=== PATIENT | female | born 1945 | race Caucasian/White ===

== ENCOUNTER 2020-03-17 07:00 | Inpatient (IN) | payer MEDICARE, SELFPAY ==
[2020-03-17] VITALS (7 sets, daily range): BP systolic 105–179; BP diastolic 58–88; PULSE 85–98; RESP 15–20; TEMP 35.9–37; O2SAT 95–99; BMI 32.8
--- NOTE | ~2020-03-17 | XR_ITS ---
EXAMINATION: XR abdomen obstructive series EXAM DATE: 03/20/2020 05:32 INDICATION: Partial small bowel obstruction. TECHNIQUE: Frontal upright projection of the upper abdomen, frontal projection of the lower abdomen f or interpretation. Comparison is made to prior examination from 03/19/2020. FINDINGS: : Multiple loops of moderately distended air-filled small bowel, amount of distention appe ars unchanged compared to yesterday. Small bowel obstruction. Small to moderate amount of colonic gas . There is no organomegaly. Lower lumbar predominant spondylosis. IMPRESSION: 1. Small bowel obstruction, unchanged. Reviewed, dictated and finalized at location A.
--- NOTE | ~2020-03-17 | XR_ITS ---
EXAMINATION: XR abdomen obstructive series EXAM DATE: 03/19/2020 05:45 INDICATION: Small bowel obstruction. TECHNIQUE: Frontal projection(s) of the abdomen for interpretation. Comparison is made to prior exami nation from 03/18/2020, 03/17. FINDINGS: Multiple loops of moderately distended air-filled small bowel, amount of distention appear s slightly improved compared to yesterday. Small bowel obstruction. Small to moderate amount of colon ic gas. There is no organomegaly. Lower lumbar predominant spondylosis. IMPRESSION: 1. Small bowel obstruction, mild improvement in degree of distention. Reviewed, dictated and finalized at location A.
--- NOTE | ~2020-03-17 | XR_ITS ---
EXAMINATION: XR abdomen obstructive series EXAM DATE: 03/18/2020 06:30 INDICATION: Follow-up partial small bowel obstruction. TECHNIQUE: Frontal upright projection of the upper abdomen, frontal projection of the lower abdomen f or interpretation. Comparison is made to prior examination from 03/17/2020. FINDINGS: Feeding tube overlies expected position. There are several loops of moderately distended a ir-filled small and small bowel, consistent with small bowel obstruction. No evidence of free intrape ritoneal gas. There is no organomegaly. Moderate disc disease lower lumbar spine. IMPRESSION: Persistent small bowel obstruction. Reviewed, dictated and finalized at location A.
--- NOTE | ~2020-03-17 | CT_ITS ---
EXAMINATION: CT abdomen pelvis w con DATE: 03/17/2020 07:55 INDICATION: Generalized abdominal pain. TECHNIQUE: Computed tomography (CT) of the abdomen and pelvis was performed with 100 mL Omnipaque 350 intravenous contrast. Automated exposure control and iterative reconstruction technique were employe d. The dose-length product was 608.71 mGy-cm. COMPARISON: CT abdomen and pelvis 01/01/2015 FINDINGS: The visualized portions of the lung bases demonstrate mild atelectasis. No pleural effusion . The heart size is normal. No pericardial effusion. There are coronary artery calcifications. The li gamaliel and spleen are normal. There are changes of cholecystectomy. Pancreas divisum is noted. The adren al glands are normal. There is cortical thinning of the kidneys. There are scattered diverticula in t he colon. There is wall thickening of the sigmoid colon. The appendix is not visualized. There are mu ltiple dilated loops of small bowel with transition point in right lower quadrant. There is a small v olume of ascites. There are no pathologically enlarged lymph nodes. There is severe lumbar spondylosi s. IMPRESSION: 1. Small bowel obstruction with transition point in the ileum in right lower quadrant. 2. Wall thickening of the sigmoid colon, likely chronic diverticulitis. 3. Small volume of pelvic ascites. Reviewed, dictated and finalized at location B. IMPRESSION: 1. Small bowel obstruction with transition point in the ileum in right lower qu adrant. 2. Wall thickening of the sigmoid colon, likely chronic diverticulitis. 3. Small volume of pelvic ascites.
--- NOTE | ~2020-03-17 | XR_ITS ---
EXAMINATION: XR abdomen NG/feed tube insert DATE: 03/17/2020 08:45 INDICATION: Nasogastric tube placement. TECHNIQUE: An upright view of the abdomen was obtained. COMPARISON: CT abdomen and pelvis 03/17/2020 FINDINGS: The lower abdomen is excluded. There are dilated loops of small bowel. The colon is decompr essed. The nasogastric tube tip is in the stomach. IMPRESSION: 1. Nasogastric tube tip in the stomach. 2. Small bowel obstruction. Reviewed, dictated and finalized at location B.
--- NOTE | ~2020-03-17 | XR_ITS ---
XR abdomen obstructive series 03/21/2020 08:42 Indication: Small bowel obstruction Procedure: Supine and upright views of the abdomen Comparison: Comparison to multiple prior studies sequentially, with oldest reviewed study dated 03/17. Findings: Dilated small bowel loops with air-fluid levels on upright view, compatible with persistent small bowel obstruction. There is small amount of gas in the colon and rectum. No free air is identi fied. Lung bases unremarkable. Impression: 1: Persistent small bowel obstruction. Reviewed, dictated and finalized at location A. Impression: 1: Persistent small bowel obstruction.
--- NOTE | 2020-03-17 07:11 | ED.ABDPAIN ---
HPI - Abdominal Pain General Chief Complaint: Abdominal Pain Stated Complaint: abd pain; n/v Time Seen by Provider: 03/17/20 07:10 Source: patient and family Mode of arrival: ambulatory Limitations: no limitations History of Present Illness HPI narrative: 74 years old white female complaining of nausea and frequent vomiting since last night with diffuse lower abdominal discomfort. Patient denies any fever, chills, coughing, shortness of breath, back pain or exposure to anybody was COVID-19. Related Data Home Medications Medication Instructions Recorded Confirmed albuterol sulfate 2.5 mg INHALATION Q4-6H PRN 09/05/19 01/03/20 albuterol sulfate 90 mcg/actuation 2 inhalation INHALATION Q4H gm 09/05/19 01/03/20 aerosol inhaler aspirin 81 mg tablet,delayed 81 mg PO DAILY 09/05/19 01/03/20 release glucosamine sulfate 500 mg tablet 500 mg PO BID 09/05/19 01/03/20 magnesium 250 mg tablet 250 mg PO DAILY 09/05/19 01/03/20 vitamin B complex with vit C-folic 1 tablet PO DAILY 09/05/19 01/03/20 acid 800 mcg-zinc 12.5 mg tablet vitamins A,C,L-lcry-omqpgm 14,320 1 cap PO BID 09/05/19 01/03/20 unit-226 mg-200 unit capsule L.acidoph, paracasei,B. lactis cell PO 03/17/20 03/17/20 [Digestive Advantage Advanced] potassium chloride [Klor-Con 10] 10 meq PO DAILY 03/17/20 03/17/20 Allergies Allergy/AdvReac Type Severity Reaction Status Date / Time codeine Allergy Intermediate hives/lumps Verified 03/17/20 07:13 Penicillins Allergy Unknown Rash Verified 03/17/20 07:13 Review of Systems Review of Systems: Narrative: CONSTITUTIONAL: Denies fever, chills, or sweats. EYES: Denies visual changes, redness, or discharge. ENT: Denies rhinorrhea, congestion, sore throat, or otalgia. CARDIOVASCULAR: Denies chest pain, palpitations, or edema. RESPIRATORY: Denies cough or dyspnea. GASTROINTESTINAL: Lower abdominal pain GENITOURINARY: Denies dysuria or hematuria. SKIN: Denies rash or itching. MUSCULOSKELETAL: Denies back pain, joint pain, or myalgia. NEUROLOGIC: Denies headache, numbness, or weakness. PSYCHIATRIC: Denies anxiety or depression. [facility] Family History Family History Mother Family history of coronary artery disease Sibling Family history of coronary artery disease Other Hypertension Social History Social History Smoking status: Former smoker Smoking end date: 07/24/97 Alcohol intake: current Gender identity (if verbalized by the patient): Female Exam Narrative: Exam Narrative: General appearance: Well-developed, well-nourished Skin: Normal color Head: Normocephalic, nontraumatic Eyes: Clear conjunctiva ENT: Oropharynx normal, ears normal, nose normal Neck: Supple, nontender Chest and respiratory: Airway patent, no respiratory distress, no accessory muscle use Heart: Regular rate/rhythm Abdomen: Soft, slight diffuse tenderness, distention, quiet bowel sounds Vascular: Normal peripheral pulses, normal capillary refill. Musculoskeletal: Normal range of motion, nontender back Neurologic: Alert and oriented ?3, COUNTY COURT JUDGE is normal as tested, no gross motor deficit Course Course Emergency Course: Stable Consultations Consultation #1: Dr. 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 Benjamin/hospitalist Date: 03/17/20 Time: 08:32 MDM - Abdominal Pain MDM Narrative Medical decision making narrative: Patient presents with abdominal pain, history of cholecystectomy, appendectomy and hysterectomy. Small bowel obstruction is my concern. Please look at the differential diagnosis below. CT abdomen and pelvi
[2020-03-17 07:27] LABS: Basophils Absolute Auto 0.1 K/mm3 (0.0-0.1); Basophils Percent Auto 0.4 % (0.2-1.2); Eosinophils Absolute Auto 0.1 K/mm3 (0-0.3); Eosinophils Percent Auto 0.6 % (0-4.4); Hematocrit 43.9 % (37.0-47.0); Hemoglobin 15.3 g/dL (12.0-15.0); Immature Granulocyte Absolute 0.11 K/mm3 (0.00-0.031); Immature Granulocyte Percent A 0.7 % (0-0.5); Lymphocytes Absolute Auto 2.18 K/mm3 (0.9-3.2); Lymphocytes Percent Auto 13.3 % (18.3-44.2); Mean Corpuscular HGB Conc 34.9 g/dl (32-36); Mean Corpuscular Hemoglobin 31.5 pg (26-34); Mean Corpuscular Volume 90.3 fl (80-100); Mean Platelet Volume 10.3 fl (7.4-10.4); Monocytes Absolute Auto 0.8 K/mm3 (0.1-0.6); Monocytes Percent Auto 4.9 % (2.6-8.5); Neutrophils Absolute Auto 13.2 K/mm3 (1.3-6.7); Neutrophils Percent Auto 80.1 % (45.5-73.1); Platelet Count Result 359 k/mm3 (150-375); Red Blood Count 4.86 M/mm3 (4.2-5.4); Red Cell Distribution Width 12.5 % (11.5-14.5); White Blood Count 16.4 K/mm3 (4.5-10.0)
[2020-03-17 07:33] LABS: WBC Urine 0-3 /hpf
[2020-03-17] MEDS: SODIUM CHLORIDE 0.9% IV 1,000 ML 999 ML IV CONT (07:35)
[2020-03-17] MEDS: ONDANSETRON INJ 4 MG/2 ML VIAL IV PUSH (07:35)
[2020-03-17 07:41] LABS: Add Urine Microscopic? YES; Alanine Aminotransferase 28 U/L (4-35); Albumin Level 4.8 g/dL (3.5-5.1); Alkaline Phosphatase 62 U/L (38-126); Anion Gap 10 mmol/L (8-16); Appearance Urine Clear (Clear); Aspartate Amino Transferase 42 U/L (14-36); Bilirubin Urine Negative (Negative); Bilirubin,Total 0.5 mg/dL (0.2-1.3); Blood Urea Nitrogen 17 mg/dL (7-17); Blood Urine Trace (Negative); Calcium 9.7 mg/dL (8.4-10.2); Carbon Dioxide 29 mmol/L (22-30); Chloride 93 mmol/L (98-107); Color Urine Yellow (Yellow); Estimated Glomerular Filt Rate > 60; Glucose 158 mg/dL (65-105); Glucose Urine UA Negative (Negative); Ketones Urine Negative (Negative); Leukocyte Esterase Ur Negative LEU/UL (Negative); Lipase 55 U/L (23-300); Nitrate Urine Negative (Negative); Potassium 4.7 mmol/L (3.4-5.0); Protein Urine 1+ mg/dL (Negative); Sodium 132 mmol/L (137-145); Urobilinogen Urine 0.2 mg/dL (<2.0)
--- NOTE | 2020-03-17 09:25 | ADMGEN ---
This patient, Essie Quintana, was admitted to 2 Medical Room 258-. Patient/family oriented to hospital policies and general routines including ID bracelet, bed and alarms, visiting hours, pain management, procedures, bathroom and other care routines, personal items, smoking policy, room service/diet, and visiting hours. Valuables list has been completed. Information on how to activate the Rapid Response Team has been discussed. Patient/Family are encouraged to report perceived risks to care and to ask questions if they do not understand what they are told or what they should do.
[2020-03-17] MEDS: SODIUM CHLORIDE 0.9% IV 1,000 ML 125 ML IV CONT ×2 (09:45→18:10)
[2020-03-17] MEDS: BENZOCAINE/MENTHOL (*BKC) 18 EA LOZENGE 1 LOZENGE PO (13:42)
--- NOTE | 2020-03-17 15:14 | PM.CNGS ---
Assessment and Plan Assessment and plan (1) Partial small bowel obstruction: Onset Date: 03/16/20 Code(s): K56.600 - Partial intestinal obstruction, unspecified as to cause Status: Acute Assessment and Plan: NG tube decompression, bowel rest and IV fluid rehydration will be instituted. I will repeat labs and abdominal film in the morning and follow with you. (2) Leukocytosis: Code(s): D72.829 - Elevated white blood cell count, unspecified Status: Acute Assessment and Plan: Most likely secondary to the patient's bowel obstruction however, should check a UA. (3) Essential hypertension: Onset Date: Unknown Code(s): I10 - Essential (primary) hypertension Status: Acute Assessment and Plan: Patient will have to have some IV medicine for this to substitute for her usual home meds. (4) Hypothyroidism: Onset Date: Unknown Code(s): E03.9 - Hypothyroidism, unspecified Status: Acute Assessment and Plan: Most recent labs I could see appeared to show that she was on adequate replacement. Will resume this when able to tolerate a diet. (5) Pulmonary emphysema: Onset Date: Unknown Code(s): J43.9 - Emphysema, unspecified Status: Acute Assessment and Plan: Patient has a fairly long history of significantly heavy smoking. This is probably related to that. History of Present Illness Consult details Consult date: 03/17/20 Reason for consult: abdominal pain Requesting physician: Dennis Benjamin MD Narrative: This is a 74 year old white female Who presented to the [facility] emergency room today complaining of nausea and frequent vomiting since last night. This has been associated with diffuse lower abdominal discomfort. Patient denies any fever, chills, coughing, shortness of breath, back pain, or exposure to anybody was COVID-19. patient was seen in her hospital room after admission with her daughter present. Further history reveals that the patient states that over the last month she has been having a little bit increased indigestion that she could put a finger on. She is not sure why but she would not call it reflux. She also denies known heartburn. She states that she really for Misbah feeling worse sometime during the middle of the night last night. She woke with crampy abdominal pain across both the upper and mid lower abdomen and then subsequent vomiting. She did did have some loose stool both last night and once early this morning before coming to the hospital. She is not in general been constipated her having diarrhea lately. Workup in the emergency room revealed elevated white count with the rest of her labs being fairly normal other than her blood glucose being up and 158. A CT scan of the abdomen pelvis revealed dilated small bowel with an apparent transition zone in the right lower quadrant near the ileum. No obvious masses or other changes have not been noted. An NG tube was placed in the emergency room and has about 100 cc out in the canister in the room. The patient received some Tylenol recently and is feeling better than she was in the emergency room. She has not noticed passing any flatus since were coming to the hospital. Patient has had previous surgery but all were a long time ago. Age 29 she had a cholecystectomy appendectomy and removal of 1 ovary force cystic changes on it. Subsequently at age 31 she had a vaginal hysterectomy. She states that this was because of endometriosis. Review of Systems Constitutional: Constitutional: Reports as per HPI and Denies headache(s) Eyes: Eyes: Denies loss of vision and Denies eye pain ENT: Reports Normal hearing present, Denies change in voice, Denies dizziness and Denies headache(s) Cardiovascular: Cardiovascular: Denies chest pain and Denies dyspnea Respiratory: Respiratory: Denies dyspnea and Denies wheezing Gastrointestinal: Gastrointestinal: Reports
--- NOTE | 2020-03-17 15:20 | PM.IMHP ---
H&P: HPI History of Present Illness Date/Time: 03/17/20 15:20 Chief complaint: Abdominal pain, nausea, and vomiting. Narrative: Essie Quintana is a very pleasant 74-year-old female with history of multiple abdominal surgeries, GERD, hypertension, COPD, and hypothyroidism who presented to the emergency department earlier this morning from home for evaluation of abdominal pain, nausea, and vomiting. Last evening she reports the insidious onset of diffuse, lower abdominal pain that began several hours after eating a meal consisting of fish, baked beans, tomatoes, and cucumbers. The pain has been intermittent and seems to come in waves like labor pains. It is described as a cramp or gas-like pain and it does not radiate. At approximately 23:30 she took an antacid, which seemed to help a little bit. Unfortunately she slept poorly throughout the night due to the pain and at 03:00 she developed nausea and vomiting. With further questioning, she has been suffering from an increase in indigestion over the past month, for which she will take antacids. Yesterday morning she had a normal bowel movement, but last evening and this morning she had loose stools, small in caliber. In the emergency department she was found to have evidence of a small-bowel obstruction for which an NG tube was inserted, with some improvement in her bloating and discomfort. She has had quite a bit of output from that, initially reporting clear yellow fluid but it is now draining mainly opaque brown fluid. She denies vomiting feculent matter. She has no history of bowel obstruction. Her pain is manageable at this time, and her biggest complaint is of feeling the NG tube in the back of her throat. She is not on a daily PPI or H2 elliot. She denies hematemesis, melena, and hematochezia. No history of malignancy. Last colonoscopy was in June 2017 and no diverticulosis was noted at that time. Review of Systems Review of Systems: Narrative: Twelve systems were reviewed with pertinent positives and negatives as per HPI. No fever, chills, or sweats. She denies recent cold and flu symptoms. No sick contacts hers exposure to those positive for COVID-19. No chest pain or pleuritic pain. She had some mild shortness of breath when up walking around the unit, but she does have COPD and is not unusual for her to get short of breath with activity. She wears corrective lenses and an upper denture. Except as documented, all other systems were reviewed and are negative. [facility] Past Medical History Medical History (Updated 03/17/20 @ 18:29 by Elizabeth Ryan PA-C) Anxiety Congestive heart failure Poorly documented, with no echocardiogram noted in our system. COPD with emphysema Essential hypertension (Unknown) Hyperlipidemia Hypothyroidism (Unknown) Left bundle branch block Macular degeneration Osteoarthritis Pancreas divisum On CT of the abdomen/pelvis in February 2020. Surgical History Surgical History History of appendectomy History of cholecystectomy History of colonoscopy Colonoscopy in June [address] Mejía for positive Cologuard showed internal hemorrhoids. History of hysterectomy History of tubal ligation Social History Social History (Updated 03/17/20 @ 18:30 by Elizabeth Ryan PA-C) Social History: Surrogate decision maker: Bonnie Bean, daughter. Code status: Full code. Smoking packs per day: 2 Smoking cigarettes per day: 40.0 Years smoked: 22 Smoking pack-years: 44.00 Smoking status: Former smoker Tobacco type: cigarettes Second hand tobacco smoke exposure: Yes Smoking end date: 07/24/97 Alcohol intake: never Substance use: never Substance use type: does not use Additional living arrangements comments: Resides in [place] with her catJack. Occupation/Education: retired Gender identity (if verbalized by the patient): Female Sexual Orientation
[2020-03-17] MEDS: FAMOTIDINE 20 MG/2 ML VIAL IV PUSH (21:53)
[2020-03-18 01:04] LABS: Gastric Negative Control Negative; Gastric Positive Control Positive; Occult Blood Gastric Fluid Positive; pH Gastric Fluid 3 (1-8)
[2020-03-18 04:00] VITALS: BP 127/48; PULSE 58; RESP 18; TEMP 36.2; O2SAT 95
[2020-03-18] MEDS: BENZOCAINE/MENTHOL (*BKC) 18 EA LOZENGE 1 LOZENGE PO ×3 (04:22→22:24)
[2020-03-18] MEDS: LEVOTHYROXINE SODIUM INJ 100 MCG/5 ML VIAL 44 MCG IV PUSH (06:11)
[2020-03-18 06:41] LABS: Basophils Absolute Auto 0.1 K/mm3 (0.0-0.1); Basophils Percent Auto 0.5 % (0.2-1.2); Eosinophils Absolute Auto 0.1 K/mm3 (0-0.3); Eosinophils Percent Auto 0.5 % (0-4.4); Hematocrit 41.4 % (37.0-47.0); Immature Granulocyte Absolute 0.03 K/mm3 (0.00-0.031); Immature Granulocyte Percent A 0.3 % (0-0.5); Lymphocytes Absolute Auto 1.92 K/mm3 (0.9-3.2); Lymphocytes Percent Auto 17.7 % (18.3-44.2); Mean Corpuscular HGB Conc 33.8 g/dl (32-36); Mean Corpuscular Hemoglobin 31.3 pg (26-34); Mean Corpuscular Volume 92.4 fl (80-100); Mean Platelet Volume 10.4 fl (7.4-10.4); Monocytes Percent Auto 8.8 % (2.6-8.5); Neutrophils Absolute Auto 7.9 K/mm3 (1.3-6.7); Neutrophils Percent Auto 72.2 % (45.5-73.1); Platelet Count Result 297 k/mm3 (150-375); Red Blood Count 4.48 M/mm3 (4.2-5.4); Red Cell Distribution Width 12.8 % (11.5-14.5); White Blood Count 10.9 K/mm3 (4.5-10.0)
[2020-03-18 06:58] LABS: Alanine Aminotransferase 18 U/L (4-35); Albumin Level 3.5 g/dL (3.5-5.1); Alkaline Phosphatase 45 U/L (38-126); Anion Gap 8 mmol/L (8-16); Aspartate Amino Transferase 30 U/L (14-36); Bilirubin,Total 0.4 mg/dL (0.2-1.3); Blood Urea Nitrogen 12 mg/dL (7-17); Calcium 8.2 mg/dL (8.4-10.2); Carbon Dioxide 29 mmol/L (22-30); Chloride 100 mmol/L (98-107); Estimated CRCL calculation 70 ml/min; Estimated Glomerular Filt Rate > 60; Glucose 112 mg/dL (65-105); Potassium 3.4 mmol/L (3.4-5.0); Sodium 137 mmol/L (137-145)
[2020-03-18] MEDS: SODIUM CHLORIDE 0.9% IV 1,000 ML 80 ML IV CONT ×2 (07:15→21:08)
[2020-03-18 08:42] LABS: Thyroid Stimulating Hormone Reflex 0.714 uIU/mL (0.465-4.68)
[2020-03-18] MEDS: KCL 20 MEQ/SW 100 ML 100 ML 50 MEQ IVPB (08:43)
[2020-03-18] MEDS: FAMOTIDINE 20 MG/2 ML VIAL IV PUSH ×2 (08:43→21:08)
--- NOTE | 2020-03-18 08:45 | PM.PNGS ---
Progress Note: A&P Assessment and Plan (1) Partial small bowel obstruction: Onset Date: 03/16/20 Code(s): K56.600 - Partial intestinal obstruction, unspecified as to cause Status: Acute Assessment and Plan: this is the main reason for the patient's admission. She had only 300 cc out her NG overnight. X-ray shows a couple of dilated loops of small bowel. Will see if we can get her open up with continued conservative management. Will try a Dulcalax suppository today to clear the rectum and one dose of milk a magnesia down the NG tube. Repeat abdominal x-rays in the morning tomorrow. (2) Anxiety: Onset Date: Unknown Code(s): F41.9 - Anxiety disorder, unspecified Status: Acute Assessment and Plan: I did describe to the patient the surgery that may be necessary if her bowel obstruction does not resolve. She states that she is somewhat fearful of this. She hopes that we can get it to resolve with conservative management. Subjective Subjective Date/Time Seen: 03/18/20 08:45 Patient lying in bed when I entered the room. She denies bowel movement overnight all though she felt as if she may need to have one. She has not passed much flatus either. She did do some walking yesterday afternoon and evening. She states she is hungry. Review of Systems Constitutional: Constitutional: Reports no additional constitutional complaints ENT: Reports other (Mucous Membranes moist.) Cardiovascular: Cardiovascular: Denies dyspnea Respiratory: Respiratory: Denies pain on inspiration and Denies dyspnea Gastrointestinal: Gastrointestinal: Reports no additional gastrointestinal complaints, Reports abdominal pain ( Minimal cramping occasionally cross the lower abdomen), Denies nausea and Denies vomiting Musculoskeletal: Musculoskeletal: Reports other (No calf swelling or edema) Integumentary/Breasts: Skin/Breast: Reports system reviewed and no additional complaints, except as docu Exam Const: General: cooperative, no acute distress, alert and awake Orientation/consciousness: patient oriented x3 HENMT: Mouth: Yes moist mucous membranes Neck: Neck: normal visual inspection Chest: Chest palpation & inspection: normal inspection of the chest Resp: Effort & Inspection: normal respiratory effort Auscultation: clear to auscultation bilaterally Cardio: Jugular venous distension: no JVD Rate: regular rate Rhythm: regular rhythm GI: Inspection: scar ( upper midline angling to the right) GI Palp: No Guarding due to palpation present (GI) and No Hernia present Auscultation: Hypoactive bowel sounds present Rectal Exam: deferred Neuro: General: patient oriented x3 and moves all extremities Speech: normal speech Extrem: General: normal exam except as noted Psych: Mental Status: mental status grossly normal Speech and movement: Normal speech and movement present Affect: normal affect Thought content: Yes Normal thought content present Objective Data Vital Signs Vital Signs: Vital Signs - 24 hr 03/17/20 09:23 03/17/20 09:33 03/17/20 14:00 Temperature 35.9 C L 36.7 C Pulse Rate 85 94 98 Respiratory Rate 15 18 17 Blood Pressure 163/77 H 105/78 142/58 H Pulse Oximetry 97 96 95 03/17/20 20:00 03/17/20 20:45 03/18/20 04:00 Temperature 37.0 C 36.2 C L Pulse Rate 92 97 58 L Respiratory Rate 20 16 18 Blood Pressure 137/61 127/48 L Pulse Oximetry 97 95 Intake/Output Intake/Output: Intake & Output 03/15/20 03/16/20 03/17/20 03/18/20 23:59 23:59 23:59 23:59 Intake Total 2100 1000 Output Total 1350 300 Balance 750 700 Meds/Results Medications: Active Medications Generic Name Dose Route Start Last Admin Trade Name Freq PRN Reason Stop Dose Admin Albuterol 2.5 mg 03/17/20 15:32 Albuterol Sulf Neb 2.5 Mg/3 Ml INHALATION Q4-6H PRN Shortness Of Breath Or Wheezing Albuterol 2 puff 03/17/20 15:32 Proventil Hfa INHALATION Q4HRT SC
[2020-03-18 08:50] LABS: Hemoglobin A1C 5.8 % (<5.7)
[2020-03-18] MEDS: MAGNESIUM HYDROXIDE SUSP 30 ML UDC FEED TUBE (09:08)
[2020-03-18] MEDS: BISACODYL 10 MG SUPPOSITORY RECTAL (09:08)
--- NOTE | 2020-03-18 09:18 | PM.IMPN ---
Progress Note: A&P Assessment and Plan (1) Small bowel obstruction: Code(s): K56.609 - Unspecified intestinal obstruction, unspecified as to partial versus complete obstruction Status: Acute Assessment and Plan: No prior history of such; presumably due to adhesions from multiple abdominal surgeries. NG tube for decompression, bowel rest, and IV fluid rehydration. Dr. Kaufman's input is appreciated. (2) Leukocytosis: Code(s): D72.829 - Elevated white blood cell count, unspecified Status: Acute Assessment and Plan: Improved today. Suspect possible stress response secondary to above. UA is unremarkable. Afebrile. Monitor CBC. (3) Dehydration: Code(s): E86.0 - Dehydration Status: Acute Assessment and Plan: Secondary to vomiting. Continue IV fluid rehydration for now. 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 Continue maintenance inhalers. (5) Anxiety: Onset Date: Unknown Code(s): F41.9 - Anxiety disorder, unspecified Status: Acute Assessment and Plan: Stable. IV Ativan is available if needed. (6) Essential hypertension: Onset Date: Unknown Code(s): I10 - Essential (primary) hypertension Status: Acute Assessment and Plan: Blood pressures stable overnight, last 127/48 this AM. Initially IV metoprolol p.r.n. q.6 hours was ordered, however the patient believes this drug may be the one she had been on previously that dropped my blood pressure too low. For now will just monitor BPs closely and add IV medication if needed. (7) Hypothyroidism: Onset Date: Unknown Code(s): E03.9 - Hypothyroidism, unspecified Status: Acute Assessment and Plan: IV levothyroxine while NPO. Subjective Date/time seen: 03/18/20 09:10 Interval history: Ms. Quintana is a 74yo admitted for small bowel obstruction. She is feeling a bit improved today. She denies nausea or vomiting. Still no BM but feels like she needs to have one. Has not passed gas yet this morning. She denies any chest pain or shortness of breath. Review of Systems Review of Systems: Narrative: Twelve systems were reviewed with pertinent positives and negatives as per HPI. Exam Narrative: Exam Narrative: General: Female resting supine in bed in no acute distress. HEENT: Normocephalic, EOMI, oral mucosa tacky. Cardiovascular: Rate and rhythm are regular. Respiratory: Lungs clear to auscultation. Non-labored breathing. Abdomen: Soft, mild diffuse tenderness to palpation without guarding, non-distended, faint bowel sounds are present. Extremities: Peripheral pulses intact. Trace periankle edema. Nontender to palpation. Neuro: No focal neurological deficits. Speech is clear. Objective Data Vital Signs Vital Signs: Last Vital Signs Temp 97.1 F L 03/18/20 04:00 Pulse 58 L 03/18/20 04:00 Resp 18 03/18/20 04:00 BP 127/48 L 03/18/20 04:00 Pulse Ox 95 03/18/20 04:00 Intake/Output Intake/Output: Intake & Output 03/15/20 03/16/20 03/17/20 03/18/20 23:59 23:59 23:59 23:59 Intake Total 2100 1000 Output Total 1350 300 Balance 750 700 Meds/Results Medications: Active Medications Generic Name Dose Route Start Last Admin Trade Name Freq PRN Reason Stop Dose Admin Albuterol 2.5 mg 03/17/20 15:32 Albuterol Sulf Neb 2.5 Mg/3 Ml INHALATION Q4-6H PRN Shortness Of Breath Or Wheezing Albuterol 2 puff 03/17/20 15:32 Proventil Hfa INHALATION Q4HRT PRN Shortne
[2020-03-18 13:27] VITALS: BP 138/60; PULSE 84; RESP 16; TEMP 36.3; O2SAT 97
[2020-03-18 20:00] VITALS: BP 147/68; PULSE 97; RESP 20; TEMP 36.8; O2SAT 98
[2020-03-18 20:20] VITALS: PULSE 88; RESP 18
[2020-03-19] MEDS: LEVOTHYROXINE SODIUM INJ 100 MCG/5 ML VIAL 44 MCG IV PUSH (05:39)
--- NOTE | 2020-03-19 08:05 | PM.PNGS ---
Progress Note: A&P Assessment and Plan (1) Partial small bowel obstruction: Onset Date: 03/16/20 Code(s): K56.600 - Partial intestinal obstruction, unspecified as to cause Status: Acute Assessment and Plan: This is the main reason for the patient's admission. She had only 300 cc out her NG overnight. X-ray shows some improvement but still a few mildly dilated loops of small bowel with some gas in the colon andrectum. I discussed with her proceeding to a small-bowel follow-through versus a trial of clear liquids with the NG tube out and she would rather proceed with getting the NG out and trying some liquids. I will give her 1 more dose of milk a magnesia down the NG tube then remove the tube and start clear liquids.Will see if we can get her open up with continued conservative management. Repeat abdominal x-rays in the morning tomorrow. Will plan to stick with clear liquids until tomorrow morning and if improved she may be able to be advanced. If she improves needs to go home probably should stay on a low residue diet for 1 week she is following a low salt diet at home in general. Therefore, will have the dietitian bring her some information about this. (2) Anxiety: Onset Date: Unknown Code(s): F41.9 - Anxiety disorder, unspecified Status: Acute Assessment and Plan: I did describe to the patient the surgery that may be necessary if her bowel obstruction does not resolve. She states that she is somewhat fearful of this. She hopes that we can get it to resolve with conservative management. Subjective Subjective Date/Time Seen: 03/19/20 08:05 Patient lying in bed stay and she is comfortable without nausea. She did walk in the hallway 4 times yesterday. About 30 minutes after a duplex suppository she did have phasic fairly regular bowel movement x1 yesterday. She also is now passing some gas. Review of Systems Constitutional: Constitutional: Reports as per HPI, Reports no additional constitutional complaints and Denies headache(s) Eyes: Eyes: Denies loss of vision and Denies eye pain ENT: Reports Normal hearing present, Denies change in voice, Denies dysphagia, Denies dizziness, Denies headache(s) and Reports other (Mucous Membranes moist.) Cardiovascular: Cardiovascular: Denies chest pain and Denies dyspnea Respiratory: Respiratory: Denies pain on inspiration, Denies dyspnea and Denies wheezing Gastrointestinal: Gastrointestinal: Reports as per HPI, Denies abdominal pain and Denies diarrhea Genitourinary: Genitourinary: Denies dysuria and Denies urinary incontinence Musculoskeletal: Musculoskeletal: Denies back pain, Denies arthralgias and Reports other (No calf swelling or edema) Integumentary/Breasts: Skin/Breast: Reports system reviewed and no additional complaints, except as docu Neurologic: Reports Normal hearing present, Denies dizziness, Denies headache(s), Denies loss of vision and Denies memory loss Psychiatric: Psychiatric: Denies memory loss and Denies panic attacks Endocrine: Endocrine: Reports no additional endocrine complaints Hematologic/Lymphatic: Hematologic/Lymphatic: Reports no additional hematologic/lymphatic complaints Allergic/Immunologic: Allergic/Immunologic: Denies wheezing Exam Const: General: cooperative, no acute distress, well developed, alert and awake Nutritional Appearance: well nourished Orientation/consciousness: patient oriented x3 Limitations: no limitations HENMT: Head: normal to inspection, normocephalic and atraumatic Ears: hearing grossly normal bilaterally General nose exam: Normal external nose present Face and sinus: normal facial exam Mouth: Yes Normal oral and palatal mucosa present, Yes tongue normal and Yes moist mucous membranes Eyes: General: appearance normal, both eyes and all related structures Pupils: Equal, round and reactive pupils present EOM: EOMs intact bilaterally Neck: Neck: normal visual i
[2020-03-19] MEDS: FAMOTIDINE 20 MG/2 ML VIAL IV PUSH ×2 (08:51→21:02)
[2020-03-19] MEDS: MAGNESIUM HYDROXIDE SUSP 30 ML UDC FEED TUBE (08:51)
[2020-03-19] MEDS: SODIUM CHLORIDE 0.9% IV 1,000 ML 80 ML IV CONT ×2 (10:04→23:01)
--- NOTE | 2020-03-19 11:19 | PM.IMPN ---
Progress Note: A&P Assessment and Plan (1) Small bowel obstruction: Code(s): K56.609 - Unspecified intestinal obstruction, unspecified as to partial versus complete obstruction Status: Acute Assessment and Plan: No prior history of such; presumably due to adhesions from multiple abdominal surgeries. Continue conservative management per general surgery recommendations. NG tube out today and she is attempting clear liquids. Repeat obstructive series tomorrow is ordered. (2) Leukocytosis: Code(s): D72.829 - Elevated white blood cell count, unspecified Status: Acute Assessment and Plan: Improved today. Suspect possible stress response secondary to above. UA is unremarkable. Afebrile. Monitor CBC. (3) Dehydration: Code(s): E86.0 - Dehydration Status: Acute Assessment and Plan: Secondary to vomiting. Continue IV fluid rehydration for now. 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 Continue maintenance inhalers. (5) Anxiety: Onset Date: Unknown Code(s): F41.9 - Anxiety disorder, unspecified Status: Acute Assessment and Plan: Stable. IV Ativan is available if needed. (6) Essential hypertension: Onset Date: Unknown Code(s): I10 - Essential (primary) hypertension Status: Acute Assessment and Plan: Blood pressures stable last night, notified nursing to chart new vitals today. Her oral coreg is held until tolerating more of a diet, hopefully can resume in AM. HCTZ held. For now will just monitor BPs closely and add IV medication if needed. (7) Hypothyroidism: Onset Date: Unknown Code(s): E03.9 - Hypothyroidism, unspecified Status: Acute Assessment and Plan: IV levothyroxine until she's tolerating more of a diet. (8) Hypokalemia: Code(s): E87.6 - Hypokalemia Status: Acute Assessment and Plan: K is 3.2 and replaced. Will monitor. Mag was normal yesterday. Subjective Date/time seen: 03/19/20 1055 Interval history: Ms. Quintana is a 74yo admitted for small bowel obstruction. She is feeling a little improved today. NG is out and she is attempting clear liquids today. She tells me she had soup broth for breakfast and so far is having no abdominal pain, nausea, or vomiting. She reports one small BM yesterday, none today but she is passing gas. She denies chest pain, shortness of breath, or calf tenderness. Review of Systems Review of Systems: Narrative: Twelve systems were reviewed with pertinent positives and negatives as per HPI. Exam Narrative: Exam Narrative: General: Female resting supine in bed in no acute distress. HEENT: Normocephalic, EOMI, oral mucosa moist. Cardiovascular: Rate and rhythm are regular. Respiratory: Lungs clear to auscultation. Non-labored breathing. Abdomen: Soft, very mild diffuse tenderness to palpation without guarding, non-distended, faint bowel sounds are present. Extremities: Peripheral pulses intact. No edema. Nontender to palpation. Neuro: No focal neurological deficits. Speech is clear. Objective Data Vital Signs Vital Signs: Last Vital Signs Temp 98.3 F 03/18/20 20:00 Pulse 88 03/18/20 20:20 Resp 18 03/18/20 20:20 BP 147/68 H 03/18/20 20:00 Pulse Ox 98 03/18/20 20:00 Intake/Output Intake/Output: Intake & Output 03/16/20 03/17/20 03/18/20 03/19/20 23:59 23:59 23:59 23:59 Intake Total 2100 2100 1180 Output Total 1350 450 600 Balance 750 16
[2020-03-19 11:44] LABS: Basophils Percent Auto 0.3 % (0.2-1.2); Eosinophils Absolute Auto 0.1 K/mm3 (0-0.3); Hematocrit 38.8 % (37.0-47.0); Immature Granulocyte Absolute 0.04 K/mm3 (0.00-0.031); Immature Granulocyte Percent A 0.4 % (0-0.5); Lymphocytes Absolute Auto 2.12 K/mm3 (0.9-3.2); Lymphocytes Percent Auto 19.7 % (18.3-44.2); Mean Corpuscular HGB Conc 33.5 g/dl (32-36); Mean Corpuscular Hemoglobin 31.3 pg (26-34); Mean Corpuscular Volume 93.3 fl (80-100); Monocytes Absolute Auto 0.8 K/mm3 (0.1-0.6); Monocytes Percent Auto 7.3 % (2.6-8.5); Neutrophils Absolute Auto 7.7 K/mm3 (1.3-6.7); Neutrophils Percent Auto 71.3 % (45.5-73.1); Platelet Count Result 276 k/mm3 (150-375); Red Blood Count 4.16 M/mm3 (4.2-5.4); Red Cell Distribution Width 12.8 % (11.5-14.5); White Blood Count 10.8 K/mm3 (4.5-10.0)
[2020-03-19 11:55] LABS: Anion Gap 8 mmol/L (8-16); Blood Urea Nitrogen 13 mg/dL (7-17); Carbon Dioxide 27 mmol/L (22-30); Chloride 101 mmol/L (98-107); Estimated CRCL calculation 70 ml/min; Estimated Glomerular Filt Rate > 60; Glucose 92 mg/dL (65-105); Potassium 3.2 mmol/L (3.4-5.0); Sodium 136 mmol/L (137-145)
[2020-03-19] MEDS: POTASSIUM CHLORIDE 20 MEQ PACKET (FOR LIQUID) 40 MEQ PO (12:43)
[2020-03-19 13:16] VITALS: BP 150/81; PULSE 87; RESP 18; TEMP 36; O2SAT 98
--- NOTE | 2020-03-19 13:25 | PCDIET ---
Nutritional consult completed. Edu provided on a low fiber diet for one week. Reviewed recommended foods with rationale. Pt typically eats a higher fiber diet. Pt encouraged to increase fiber after MD victor. Edu also provided on reducing Na in the diet. The pt cooks with salt and adds it at the table. We reviewed label reading, flavoring foods in other ways and leaving salt out of cooking. Encouraged slow reduction in salt at the table to adjust palate. Patient is tolerating current diet , clear liquids. We will monitor weekly.
[2020-03-19 20:00] VITALS: BP 144/58; PULSE 92; RESP 20; TEMP 36.3; O2SAT 98
[2020-03-19 21:22] VITALS: PULSE 98
[2020-03-19] MEDS: carvediloL 12.5 MG TABLET PO (21:22)
[2020-03-20 05:15] VITALS: BP 160/90; PULSE 97; RESP 20; TEMP 36.2; O2SAT 97
[2020-03-20] MEDS: LEVOTHYROXINE SODIUM INJ 100 MCG/5 ML VIAL 44 MCG IV PUSH (05:59)
[2020-03-20 06:16] LABS: Anion Gap 7 mmol/L (8-16); Blood Urea Nitrogen 7 mg/dL (7-17); Calcium 7.9 mg/dL (8.4-10.2); Carbon Dioxide 24 mmol/L (22-30); Chloride 102 mmol/L (98-107); Estimated CRCL calculation 83 ml/min; Estimated Glomerular Filt Rate > 60; Glucose 100 mg/dL (65-105); Magnesium 2.1 mg/dL (1.6-2.3); Potassium 3.7 mmol/L (3.4-5.0); Sodium 133 mmol/L (137-145)
--- NOTE | 2020-03-20 08:03 | PM.PNGS ---
Progress Note: A&P Assessment and Plan (1) Small bowel obstruction: Code(s): K56.609 - Unspecified intestinal obstruction, unspecified as to partial versus complete obstruction Status: Acute Assessment and Plan: I reviewed the Xray this AM. Still some dilated bowel and gas, but patient's exam suggests resolving partial obstruction. Will try advancing to full liquids today. Discussed with patient that there is still a possibility of persistent obstruction. Will continue to follow. Subjective Subjective Date/Time Seen: 03/20/20 08:03 Passing a lot of flatus, and having a little bit of stool still too. No abdominal bloating or nausea. Tolerating clear liquids. No pain. Ambulating. Exam GI: Inspection: scar (right paramedian) GI Palp: Yes Soft to palpation, No Tenderness to palpation present (GI) and No Guarding due to palpation present (GI) Percussion: Yes other (slightly tympanic still) Auscultation: normal bowel sounds Objective Data Vital Signs Vital Signs: Vital Signs - 24 hr 03/19/20 13:16 03/19/20 20:00 03/19/20 21:22 Temperature 36.0 C L 36.3 C L Pulse Rate 87 92 98 Respiratory Rate 18 20 Blood Pressure 150/81 H 144/58 H Pulse Oximetry 98 98 03/20/20 05:15 Temperature 36.2 C L Pulse Rate 97 Respiratory Rate 20 Blood Pressure 160/90 H Pulse Oximetry 97 Intake/Output Intake/Output: Intake & Output 03/17/20 03/18/20 03/19/20 03/20/20 23:59 23:59 23:59 23:59 Intake Total 2100 2100 3570 1194 Output Total 1350 450 600 950 Balance 750 1650 2970 244 Meds/Results Medications: Active Medications Generic Name Dose Route Start Last Admin Trade Name Freq PRN Reason Stop Dose Admin Albuterol 2.5 mg 03/17/20 15:32 Albuterol Sulf Neb 2.5 Mg/3 Ml INHALATION Q4-6H PRN Shortness Of Breath Or Wheezing Albuterol 2 puff 03/17/20 15:32 Proventil Hfa INHALATION Q4HRT PRN Shortness Of Breath Benzocaine 1 lozenge 03/17/20 11:42 03/18/20 22:24 Chloraseptic Lozenge PO 1 lozenge PRN PRN Administration Sore Throat Budesonide/Formoterol Fumarate 2 puff 03/17/20 20:00 03/19/20 21:41 Symbicort 160-4.5 Mcg (*Sp) Inhaler INHALATION 2 puff Q12HRT ENRIQUE Administration Carvedilol 25 mg 03/20/20 09:00 Coreg PO QAM ENRIQUE Carvedilol 12.5 mg 03/19/20 21:00 03/19/20 21:22 Coreg PO 12.5 mg HS ENRIQUE Administration Famotidine 20 mg 03/17/20 21:00 03/19/20 21:02 Pepcid Iv IV PUSH 20 mg Q12HR ENRIQUE Administration Levothyroxine Sodium 44 mcg 03/18/20 06:30 03/20/20 05:59 Synthroid Inj IV PUSH 44 mcg DAILY@0630 ENRIQUE Administration Lorazepam 0.5 mg 03/17/20 15:34 Ativan Inj IV PUSH Q8H PRN Anxiety Morphine Sulfate 2 mg 03/17/20 11:43 Morphine Sulfate Inj IV PUSH Q3H PRN Pain Rated 4-6 Morphine Sulfate 4 mg 03/17/20 11:43 Morphine Sulfate Inj IV PUSH Q4H PRN Pain Rated 7-10 Ondansetron HCl 4 mg 03/17/20 11:42 Zofran Inj IV PUSH Q4H PRN Nausea And Vomiting Radiology Results: ITS Impressions Abdomen/Pelvis CT 03/17/20 07:57 IMPRESSION: 1. Small bowel obstruction with transition point in the ileum in right lower quadrant. 2. Wall thickening of the sigmoid colon, likely chronic diverticulitis. 3. Small volume of pelvic ascites. Abdomen X-Ray 03/20/20 07:00 IMPRESSION: 1. Small bowel obstruction, unchanged. Labs Labs: Laboratory Results - last 24 hr 03/19/20 03/19/20 03/19/20 11:30 11:30 11:30 WBC 10.8 H RBC 4.16 L Hgb 13.0 Hct 38.8 MCV 93.3 MCH 31.3 MCHC 33.5 RDW 12.8 Plt Count 276 MPV 10.0 Immature Gran % (Auto) 0.4 Neut % (Auto) 71.3 Lymph % (Auto) 19.7 [place] % (Auto) 7.3 Eos % (Auto) 1.0 Baso % (Auto) 0.3 Lymph # (Auto) 2.12 [place] # (Auto) 0.8 H Eos # (Auto) 0.1 Baso # (Auto) 0.0 Abs Immat Gran (auto) 0.04 H Absolute Neuts (au
[2020-03-20] MEDS: MAGNESIUM HYDROXIDE SUSP 30 ML UDC PO (08:04)
[2020-03-20 08:05] VITALS: PULSE 97
[2020-03-20] MEDS: carvediloL 25 MG TABLET PO (08:05)
[2020-03-20] MEDS: FAMOTIDINE 20 MG/2 ML VIAL IV PUSH ×2 (08:05→20:41)
--- NOTE | 2020-03-20 11:41 | PM.IMPN ---
Progress Note: A&P Assessment and Plan (1) Small bowel obstruction: Code(s): K56.609 - Unspecified intestinal obstruction, unspecified as to partial versus complete obstruction Status: Acute Assessment and Plan: Continue conservative management per general surgery recommendations. NG tube out yesterday and she is attempting full liquids. Repeat imaging is not much changed. (2) Leukocytosis: Qualifiers: Leukocytosis type: unspecified Qualified Code(s): D72.829 - Elevated white blood cell count, unspecified Code(s): D72.829 - Elevated white blood cell count, unspecified Status: Acute Assessment and Plan: Improved. Suspect possible stress response secondary to above. UA is unremarkable. Afebrile. Monitor CBC. (3) COPD with emphysema: Qualifiers: Emphysema type: unspecified Qualified Code(s): J43.9 - Emphysema, unspecified Code(s): J43.9 - Emphysema, unspecified Status: Acute Assessment and Plan: No evidence of respiratory distress. Continue maintenance inhalers. (4) Anxiety: Onset Date: Unknown Code(s): F41.9 - Anxiety disorder, unspecified Status: Acute Assessment and Plan: Stable. Ativan is available if needed. (5) Essential hypertension: Onset Date: Unknown Code(s): I10 - Essential (primary) hypertension Status: Acute Assessment and Plan: BPs elevated; Her oral coreg was held until tolerating more of a diet, resumed this AM. Her home HCTZ held. Continue to monitor BPs and adjust treatment as needed. (6) Hypothyroidism: Onset Date: Unknown Qualifiers: Hypothyroidism type: unspecified Qualified Code(s): E03.9 - Hypothyroidism, unspecified Code(s): E03.9 - Hypothyroidism, unspecified Status: Acute Assessment and Plan: IV levothyroxine until she's tolerating more of a diet. (7) Hypokalemia: Code(s): E87.6 - Hypokalemia Status: Resolved Assessment and Plan: K is stable today, will monitor. Subjective Date/time seen: 03/20/20 11:00 Interval history: Ms. Quintana is a 74yo admitted for small bowel obstruction. She is feeling a little improved each day. Did not sleep well last night. She is having some watery BMs now. NG is out and she is attempting to advance to full liquids today. She tells me she had some cream of wheat for breakfast and so far is having no abdominal pain, nausea, or vomiting. She denies chest pain, shortness of breath, or calf tenderness. Review of Systems Review of Systems: Narrative: Twelve systems were reviewed with pertinent positives and negatives as per HPI. Exam Narrative: Exam Narrative: General: Female resting supine in bed in no acute distress. HEENT: Normocephalic, EOMI, oral mucosa moist. Cardiovascular: Rate and rhythm are regular. Respiratory: Lungs clear to auscultation. Non-labored breathing. Abdomen: Soft, very mild diffuse tenderness to palpation without guarding, non-distended, faint bowel sounds are present. Extremities: Peripheral pulses intact. No edema. Nontender to palpation. Neuro: No focal neurological deficits. Speech is clear. Objective Data Vital Signs Vital Signs: Last Vital Signs Temp 97.2 F L 03/20/20 05:15 Pulse 97 03/20/20 08:05 Resp 20 03/20/20 05:15 BP 160/90 H 03/20/20 05:15 Pulse Ox 97 03/20/20 05:15 Intake/Output Intake/Output: Intake & Output 03/17/20 03/18/20 03/19/20 03/20/20 23:59 23:59 23:59 23:59 Intake Total 2100 2100 3570 1774 Output Total 1350 450 600 950 Balance 750 1650 2970 824 Meds/Results Medications: Acti
[2020-03-20 14:00] VITALS: BP 108/52; PULSE 82; RESP 16; TEMP 36.2; O2SAT 97
[2020-03-20 20:40] VITALS: PULSE 78
[2020-03-20] MEDS: carvediloL 12.5 MG TABLET PO (20:40)
[2020-03-20 22:00] VITALS: BP 153/80; PULSE 80; RESP 20; TEMP 36.6; O2SAT 98
[2020-03-21] MEDS: LEVOTHYROXINE SODIUM INJ 100 MCG/5 ML VIAL 44 MCG IV PUSH (05:41)
[2020-03-21 06:00] VITALS: BP 151/73; PULSE 84; RESP 18; TEMP 36.4; O2SAT 98
[2020-03-21 06:19] LABS: Basophils Percent Auto 0.1 % (0.2-1.2); Eosinophils Absolute Auto 0.2 K/mm3 (0-0.3); Eosinophils Percent Auto 2.1 % (0-4.4); Hematocrit 34.5 % (37.0-47.0); Hemoglobin 11.7 g/dL (12.0-15.0); Immature Granulocyte Absolute 0.02 K/mm3 (0.00-0.031); Immature Granulocyte Percent A 0.3 % (0-0.5); Lymphocytes Absolute Auto 1.89 K/mm3 (0.9-3.2); Lymphocytes Percent Auto 26.6 % (18.3-44.2); Mean Corpuscular HGB Conc 33.9 g/dl (32-36); Mean Corpuscular Hemoglobin 31.3 pg (26-34); Mean Corpuscular Volume 92.2 fl (80-100); Mean Platelet Volume 10.2 fl (7.4-10.4); Monocytes Absolute Auto 0.7 K/mm3 (0.1-0.6); Monocytes Percent Auto 9.6 % (2.6-8.5); Neutrophils Absolute Auto 4.4 K/mm3 (1.3-6.7); Neutrophils Percent Auto 61.3 % (45.5-73.1); Platelet Count Result 229 k/mm3 (150-375); Red Blood Count 3.74 M/mm3 (4.2-5.4); Red Cell Distribution Width 12.4 % (11.5-14.5); White Blood Count 7.1 K/mm3 (4.5-10.0)
[2020-03-21 06:34] LABS: Alanine Aminotransferase 27 U/L (4-35); Albumin Level 3.1 g/dL (3.5-5.1); Alkaline Phosphatase 39 U/L (38-126); Anion Gap 5 mmol/L (8-16); Aspartate Amino Transferase 42 U/L (14-36); Bilirubin,Total 0.2 mg/dL (0.2-1.3); Blood Urea Nitrogen 3 mg/dL (7-17); Carbon Dioxide 29 mmol/L (22-30); Chloride 99 mmol/L (98-107); Estimated CRCL calculation 83 ml/min; Estimated Glomerular Filt Rate > 60; Glucose 90 mg/dL (65-105); Potassium 3.4 mmol/L (3.4-5.0); Sodium 133 mmol/L (137-145)
[2020-03-21] MEDS: POTASSIUM CHLORIDE 20 MEQ PACKET (FOR LIQUID) PO (09:02)
[2020-03-21 09:03] VITALS: PULSE 84
[2020-03-21] MEDS: carvediloL 25 MG TABLET PO (09:03)
[2020-03-21] MEDS: FAMOTIDINE 20 MG/2 ML VIAL IV PUSH (09:03)
--- NOTE | 2020-03-21 11:50 | PM.PNGS ---
Progress Note: A&P Assessment and Plan (1) Small bowel obstruction: Code(s): K56.609 - Unspecified intestinal obstruction, unspecified as to partial versus complete obstruction Status: Acute Assessment and Plan: Will advance to soft diet for lunch. Okay to discharge home this afternoon if patient is tolerating her diet without any nausea or bloating. Recommended continuing a soft easy to chew diet for the next couple weeks. Discussed warning signs and when to return to the hospital if symptoms recur. Subjective Subjective Date/Time Seen: 03/21/20 11:50 Tolerating full liquid diet. Bowels moving. Patient denies any bloating or nausea. Exam GI: Inspection: normal to inspection and non-distended GI Palp: Yes Soft to palpation, No Tenderness to palpation present (GI) and No Guarding due to palpation present (GI) Percussion: Yes normal to percussion Auscultation: normal bowel sounds Objective Data Vital Signs Vital Signs: Vital Signs - 24 hr 03/20/20 14:00 03/20/20 20:40 03/20/20 22:00 Temperature 36.2 C L 36.6 C Pulse Rate 82 78 80 Respiratory Rate 16 20 Blood Pressure 108/52 L 153/80 H Pulse Oximetry 97 98 03/21/20 06:00 03/21/20 09:03 Temperature 36.4 C Pulse Rate 84 84 Respiratory Rate 18 Blood Pressure 151/73 H Pulse Oximetry 98 Intake/Output Intake/Output: Intake & Output 03/18/20 03/19/20 03/20/20 03/21/20 23:59 23:59 23:59 23:59 Intake Total 2100 3570 2874 1050 Output Total 450 600 950 Balance 1650 2970 1924 1050 Meds/Results Medications: Active Medications Generic Name Dose Route Start Last Admin Trade Name Freq PRN Reason Stop Dose Admin Albuterol 2.5 mg 03/17/20 15:32 Albuterol Sulf Neb 2.5 Mg/3 Ml INHALATION Q4-6H PRN Shortness Of Breath Or Wheezing Albuterol 2 puff 03/17/20 15:32 Proventil Hfa INHALATION Q4HRT PRN Shortness Of Breath Benzocaine 1 lozenge 03/17/20 11:42 03/18/20 22:24 Chloraseptic Lozenge PO 1 lozenge PRN PRN Administration Sore Throat Budesonide/Formoterol Fumarate 2 puff 03/17/20 20:00 03/21/20 09:25 Symbicort 160-4.5 Mcg (*Sp) Inhaler INHALATION 2 puff Q12HRT ENRIQUE Administration Carvedilol 25 mg 03/20/20 09:00 03/21/20 09:03 Coreg PO 25 mg QAM ENRIQUE Administration Carvedilol 12.5 mg 03/19/20 21:00 03/20/20 20:40 Coreg PO 12.5 mg HS ENRIQUE Administration Famotidine 20 mg 03/17/20 21:00 03/21/20 09:03 Pepcid Iv IV PUSH 20 mg Q12HR ENRIQUE Administration Levothyroxine Sodium 44 mcg 03/18/20 06:30 03/21/20 05:41 Synthroid Inj IV PUSH 44 mcg DAILY@0630 ENRIQUE Administration Lorazepam 0.5 mg 03/17/20 15:34 Ativan Inj IV PUSH Q8H PRN Anxiety Morphine Sulfate 2 mg 03/17/20 11:43 Morphine Sulfate Inj IV PUSH Q3H PRN Pain Rated 4-6 Morphine Sulfate 4 mg 03/17/20 11:43 Morphine Sulfate Inj IV PUSH Q4H PRN Pain Rated 7-10 Ondansetron HCl 4 mg 03/17/20 11:42 Zofran Inj IV PUSH Q4H PRN Nausea And Vomiting Radiology Results: ITS Impressions Abdomen/Pelvis CT 03/17/20 07:57 IMPRESSION: 1. Small bowel obstruction with transition point in the ileum in right lower quadrant. 2. Wall thickening of the sigmoid colon, likely chronic diverticulitis. 3. Small volume of pelvic ascites. Labs Labs: Laboratory Results - last 24 hr 03/21/20 03/21/20 05:30 05:30 WBC 7.1 RBC 3.74 L Hgb 11.7 L Hct 34.5 L MCV 92.2 MCH 31.3 MCHC 33.9 RDW 12.4 Plt Count 229 MPV 10.2 Immature Gran % (Auto) 0.3 Neut % (Auto) 61.3 Lymph % (Auto) 26.6 [place] % (Auto) 9.6 H Eos % (Auto) 2.1 Baso % (Auto) 0.1 L Lymph # (Auto) 1.89 [place] # (Auto) 0.7 H Eos # (Auto) 0.2 Baso # (Auto) 0.0 Abs Immat Gran (auto) 0.02 Absolute Neuts (auto) 4.4 Absolute Nucleated RBC 0.0 Nucleated RBC % 0.0 Sodium 133 L Potassium 3.4 Chloride 99 Carbon
[2020-03-21 14:00] VITALS: BP 111/56; PULSE 72; RESP 17; TEMP 36.2; O2SAT 98
--- NOTE | 2020-03-21 15:49 | PM.DS ---
DS: Admitting Diagnosis Admitting Diagnosis Admitting Diagnosis: Abdominal pain, nausea, and vomiting. DS: Discharge Diagnosis Discharge Diagnosis (1) Small bowel obstruction: Code(s): K56.609 - Unspecified intestinal obstruction, unspecified as to partial versus complete obstruction Status: Acute Assessment and Plan: Date of Service 03/21/20 Ms. Quintana is a pleasant 74yo F with history of COPD, hypertension, hypothyroidism, and anxiety who presented to the ED for evaluation of sudden onset abdominal pain, nausea, and vomiting. She was noted to have a small bowel obstruction. She was seen by Dr Kaufman, general surgery. She was treated with conservative management including NG decompression, bowel rest, antiemetics and analgesics. NG was removed and patient's symptoms were improving. Diet was gradually advanced and she was tolerating a soft diet prior to discharge without abdominal pain, nausea, or vomiting. Imaging not much changed. She was educated on return to ER instructions and worrisome signs/symptoms to monitor for. She was hemodynamically stable for discharge 03/21/20 with instructions to follow up with PCP and with Dr Kaufman. Treated with conservative management per general surgery recommendations. Follow up with Dr Kaufman. (2) Leukocytosis: Qualifiers: Leukocytosis type: unspecified Qualified Code(s): D72.829 - Elevated white blood cell count, unspecified Code(s): D72.829 - Elevated white blood cell count, unspecified Status: Acute Assessment and Plan: Improved and felt to be related to possible stress response secondary to above. UA is unremarkable. Afebrile. (3) COPD with emphysema: Qualifiers: Emphysema type: unspecified Qualified Code(s): J43.9 - Emphysema, unspecified Code(s): J43.9 - Emphysema, unspecified Status: Acute Assessment and Plan: No evidence of respiratory distress. Continue maintenance inhalers. (4) Anxiety: Onset Date: Unknown Code(s): F41.9 - Anxiety disorder, unspecified Status: Acute Assessment and Plan: Stable. (5) Essential hypertension: Onset Date: Unknown Code(s): I10 - Essential (primary) hypertension Status: Acute Assessment and Plan: BPs a bit elevated as her home oral antihypertensives were held due to bowel rest. BP improved once her home meds were resumed. (6) Hypothyroidism: Onset Date: Unknown Qualifiers: Hypothyroidism type: unspecified Qualified Code(s): E03.9 - Hypothyroidism, unspecified Code(s): E03.9 - Hypothyroidism, unspecified Status: Acute Assessment and Plan: Maintained on IV levothyroxine through the admission due to bowel rest. (7) Hypokalemia: Code(s): E87.6 - Hypokalemia Status: Resolved Assessment and Plan: K low and replaced, improved day of discharge. DS: Summary Time Spent with Patient Time attestation: Total time spent providing and/or coordinating discharge services: 35 minutes Exam Narrative: Exam Narrative: General: Female resting supine in bed in no acute distress. HEENT: Normocephalic, EOMI, oral mucosa moist. Cardiovascular: Rate and rhythm are regular. Respiratory: Lungs clear to auscultation. Non-labored breathing. Abdomen: Soft, non-tender, non-distended, bowel sounds are present. Extremities: Peripheral pulses intact. No edema. Nontender to palpation. Neuro: No focal neurological deficits. Speech is clear. DS: Data Data Completed and Pending Labs on day of discharge: Last Vital Signs
== END 2020-03-21 17:10 | disposition home or self-care (01) | DRG 390 ==
LOC: ANHED 08:32 → ANH2MED 09:22
PROVIDERS: Physician Assistant; Surgery; Admitting Provider Internal Medicine; Emergency Provider Emergency Medicine; PCP Family Medicine; Visit Provider Physician Assistant
DX: K56.609 Unspecified intestinal obstruction, unspecified as to partial versus complete obstruction (principal); D72.829 Elevated white blood cell count, unspecified; E86.0 Dehydration; J43.9 Emphysema, unspecified; F41.9 Anxiety disorder, unspecified; I10 Essential (primary) hypertension; E03.9 Hypothyroidism, unspecified; E78.5 Hyperlipidemia, unspecified; E87.6 Hypokalemia; Z79.82 Long term (current) use of aspirin; Z79.899 Other long term (current) drug therapy; Z87.891 Personal history of nicotine dependence
CPT/HCPCS: 36415; 74019; 74177; 80048; 80053; 81001; 82271; 83036; 83605; 83690; 83735; 83986; 84443; 85025; 94640; 96361; 96374; 99285; A9270; J0131; J2405; J3480; J7030; Q9967

== ENCOUNTER → 2020-04-27 13:31 | Outpatient (CLI) | payer MEDICARE, SELFPAY ==
--- NOTE | ~2020-04-27 | US_ITS ---
EXAMINATION: US transvaginal DATE: 04/27/2020 13:55 INDICATION: Other specified noninflammatory disorders of the vagina TECHNIQUE: Multiple endovaginal sonographic images of the pelvis were obtained. COMPARISON: None. FINDINGS: The uterus is surgically absent. The ovaries are not visualized however no adnexal abnormal ity is seen. There is no free fluid in the pelvis. IMPRESSION: 1. No sonographic correlate for the patient's symptoms. Reviewed, dictated and finalized at location A.
== END ==
PROVIDERS: PCP Family Medicine; Visit Provider Physician Assistant Medical
DX: N89.8 Other specified noninflammatory disorders of vagina (principal); N95.0 Postmenopausal bleeding
CPT/HCPCS: 76830

== ENCOUNTER 2022-11-02 20:15 | Emergency (ER) | payer MEDICARE, SELFPAY ==
[2022-11-02 20:21] VITALS: BP 181/90; PULSE 92; RESP 18; TEMP 36.8; O2SAT 99
== END 2022-11-02 21:11 | disposition left against medical advice (07) ==
PROVIDERS: PCP Family Medicine
DX: M25.562 Pain in left knee (principal)
CPT/HCPCS: 99199

== ENCOUNTER 2022-11-04 10:47 | Emergency (ER) | payer MEDICARE, SELFPAY ==
--- NOTE | 2022-11-04 10:53 | ED.GENADULT ---
HPI - General Adult General Chief complaint: Extremity Injury, Lower Stated complaint: L KNEE REDNESS Time Seen by Provider: 11/04/22 10:53 Source: patient, RN notes reviewed and old records reviewed Mode of arrival: ambulatory Limitations: no limitations History of Present Illness HPI narrative: 77-year-old female presents to the [facility] with left knee redness since wearing a knee brace on Monday. redness to skin only with the brace was. No redness to the knee cap with her was an opening in the brace. States a hot shower made it worse. Onset (ago): day(s) (5) Related Data Home Medications Medication Instructions Recorded Confirmed albuterol sulfate 2.5 mg/3 mL 2.5 mg inhalation Q4-6H PRN 09/05/19 11/04/22 (0.083 %) solution for nebulization Shortness Of Breath Or Wheezing albuterol sulfate 90 mcg/actuation 2 inhalation inhalation Q4H PRN 09/05/19 11/04/22 aerosol inhaler Shortness Of Breath aspirin 81 mg tablet,delayed 81 mg PO DAILY 09/05/19 11/04/22 release (Adult Low Dose Aspirin) glucosamine sulfate 500 mg tablet 500 mg PO DAILY 09/05/19 11/04/22 (Glucosamine) magnesium 250 mg tablet 250 mg PO DAILY 09/05/19 11/04/22 vitamin B complex with vit C-folic 1 tablet PO DAILY 09/05/19 11/04/22 acid 800 mcg-zinc 12.5 mg tablet vitamins A,C,Z-tivc-rwilyx 4,296 2 cap PO DAILY 09/05/19 11/04/22 mcg-226 mg-90 mg capsule (ICaps AREDS) Arthaffect Powder 1 dose PO DAILY 03/17/20 11/04/22 L.acidoph, paracasei,B. lactis 10 1 cell PO DAILY 03/17/20 11/04/22 billion cell capsule (Digestive Advantage Advanced Probiotic) Lunarich Caps Reliv Products 1 cap PO BID 03/17/20 11/04/22 calcium 2 tablet PO DAILY 03/17/20 11/04/22 cnpg-U6-iylrorie-inosit-silicon 300 mg-200 unit-37.5 mg tablet (Bone Density Calcium Plus D) krill oil-hyaluronic 1 cap PO DAILY 03/17/20 11/04/22 acid-astaxanthin 353 mg capsule ([facility]) vitamin E 268 mg (400 unit) capsule 400 unit PO DAILY 03/17/20 11/04/22 acetaminophen 325 mg capsule 325 mg PO Q6H PRN Pain, Mild 04/02/20 11/04/22 (Tylenol) Allergies Allergy/AdvReac Type Severity Reaction Status Date / Time Penicillins Allergy Unknown Rash Verified 11/04/22 10:55 Review of Systems Review of Systems: All systems reviewed & are unremarkable except as noted in HPI and below Constitutional: Constitutional: Reports no additional constitutional complaints Eyes: Eyes: Reports no additional eye complaints ENT: Reports system reviewed and no additional complaints, except as documented Cardiovascular: Cardiovascular: Reports no additional cardiovascular complaints, Denies chest pain and Denies dyspnea Respiratory: Respiratory: Reports no additional respiratory complaints, Denies chest congestion, Denies cough and Denies dyspnea Gastrointestinal: Gastrointestinal: Reports no additional gastrointestinal complaints, Denies abdominal pain, Denies nausea and Denies vomiting Musculoskeletal: Musculoskeletal: Reports no additional musculoskeletal complaints Integumentary/Breasts: Skin/Breast: Reports as per HPI Neurologic: Reports system reviewed and no additional complaints, except as documented Psychiatric: Psychiatric: Reports no additional psychiatric complaints Allergic/Immunologic: Allergic/Immunologic: Reports no additional allergic/immunologic complaints [facility] Past Medical History Medical History Anxiety (Unknown) BMI 29.0-29.9,adult Congestive heart failure Poorly documented, with no echocardiogram noted in our system. COPD with emphysema Essential hypertension (Unknown) Hyperlipidemia Hypothyroidism (Unknown) Left bundle branch block Macular degeneration Nail abnormalities Osteoarthritis Pancreas divisum On CT of the abdomen/pelvis in February 2020. Surgical History Surgical History History of appendectomy History of cholecystec
[2022-11-04 10:59] VITALS: BP 130/84; PULSE 67; RESP 16; TEMP 36.6; O2SAT 100
== END 2022-11-04 11:03 | disposition home or self-care (01) ==
PROVIDERS: Emergency Provider Nurse Practitioner; PCP Family Medicine
DX: L25.9 Unspecified contact dermatitis, unspecified cause (principal); J43.9 Emphysema, unspecified; E78.5 Hyperlipidemia, unspecified; I11.0 Hypertensive heart disease with heart failure; I50.9 Heart failure, unspecified; Z79.82 Long term (current) use of aspirin; Z87.891 Personal history of nicotine dependence
CPT/HCPCS: 99213; G0463

== ENCOUNTER 2024-01-31 14:00 | Outpatient (RCR) | payer MEDICARE, SELFPAY ==
--- NOTE | 2024-01-16 16:06 | OPREHPOC ---
Outpatient Therapy Plan of Care This is a Multidisciplinary Plan of Care that may contain components documented by all disciplines (PT, OT, and ST.) PT Problem 1 PT Problem #1 Knowledge Deficit PT Goal 1 Goal 1. Patient will perform independent HEP Target Visit 3 PT Problem 2 PT Problem #2 Pain PT Goal 1 Goal 1. Patient will report pain no higher than 1/10 with normal activities Target Visit 8 PT Problem 3 PT Problem #3 Impaired Range of Motion PT Goal 1 Goal 1. Patient will demo R UE equal to L Target Visit 8 PT Problem 4 PT Problem #4 Impaired Strength PT Goal 1 Goal 1. Pt will demo R MMT equal to L to avoid needing to compensate with ADL's Target Visit 8
--- NOTE | 2024-01-16 16:07 | PTOPEVAL1 ---
Assessment and note entered by Yancy Estrella DPT Evaluation Information Assessment Status Evaluation Subjective Information Pt reports R shoulder pain for about 6 weeks with an insidious onset, at times is sharp in her anterior shoulder. Worst with reaching out to the side or picking something up. Also notices pain with operating her rocker/recliner. Put herself in a sling for at least a week or two until she went to see her PCP who then ordered therapy. She was also given an oral steroid. Highest pain recently 4/10 and lowest 0/10. Pt is mainly R hand dominant . States she is able to do ADL's but modifies to use her L more. Pt is driving. Patient goal: find out what's causing the pain and what I can do to help it Yearly check up with PCP in February. Reported Pain Level Pain Score 0: Self Report Assessment PT Clinical Summary The patient is presenting to skilled therapy with a 6 week history of R shoulder pain. She presents with decreased range of motion and strength compared to her L UE. These impairments are contributing to her pain and difficulty with normal ADL's. She will benefit from therapy to address her impairments in order to reduce pain and restore full function. Plan of Care Interventions Hot Pack/Cold Pack,Manual Therapy,Neuro Re- education,Patient/Caregiver Education,Therapeutic Activities,Therapeutic Exercise PT Services Indicated Yes Treatment Frequency and 1-2 times a week for 4-8 visits Duration These treatments will address the objective and functional deficits as defined above. The patient will be advanced safely and appropriately in order for the patient to progress towards his/her prior level of function. Additional exercises will be introduced and as well as a comprehensive home exercise program upon discharge, if needed, ?to ensure carryover of functional gains achieved in the clinic. This treatment plan has been reviewed and agreement upon by the patient.
--- NOTE | 2024-02-12 15:29 | PCPTNOTE ---
Patient did not show up for appointment at 15:00 on 02/12/24. She previously had arrived at 13:00 the same day and was told her appointment was later, she stated she would be back.
--- NOTE | 2024-02-21 08:57 | PTOPDC ---
Assessment and note entered by ESTEBAN SaenzT Evaluation Information Assessment Status Discharge - Pt Not Presen Subjective Information - Assessment PT Clinical Summary The patient is self discharging at this time. States she is feeling ok. Plan of Care PT Services Indicated No
--- NOTE | 2024-02-21 08:57 | PTOPDC ---
Assessment and note entered by Yancy Estrella DPT Evaluation Information Assessment Status Discharge - Pt Not Present Subjective Information - Assessment PT Clinical Summary The patient is self discharging at this time. States she is feeling ok. Plan of Care PT Services Indicated No
== END 2024-02-21 10:04 | disposition home or self-care (01) ==
LOC: ANHGOSHPT 14:00
PROVIDERS: PCP Family Medicine; Visit Provider Family Medicine
DX: M67.911 Unspecified disorder of synovium and tendon, right shoulder (principal)
CPT/HCPCS: 97110; 97140; 97161; 97530

== ENCOUNTER 2024-02-07 10:32 | Outpatient (CLI) | payer MEDICARE, SELFPAY ==
--- NOTE | ~2024-02-07 | MM_ITS ---
EXAMINATION: MM screening gissel BI w [place] HISTORY: Screening TECHNIQUE: Craniocaudal and mediolateral oblique 3-D tomosynthesis images were obtained and synthetic 2-D images were generated. CAD analysis was submitted and interpreted. COMPARISON: No prior mammogram is available for comparison at this institution. BREAST PARENCHYMAL COMPOSITION: Not dense: There are scattered areas of fibroglandular density. FINDINGS: There is no evidence of suspicious mass, calcification, or architectural distortion to sugg est malignancy in either breast. There has been no suspicious interval change. IMPRESSION: 1. No mammographic evidence of malignancy. 2. Recommend routine screening mammography in one year. BI-RADS Category 1: Negative Reviewed, dictated and finalized at location B.
== END 2024-02-07 10:33 ==
PROVIDERS: PCP Family Medicine; Visit Provider Family Medicine
DX: Z12.31 Encounter for screening mammogram for malignant neoplasm of breast (principal)
CPT/HCPCS: 77063; 77067

== ENCOUNTER 2024-11-25 10:30 | Outpatient (CLI) | payer MEDICARE, SELFPAY ==
--- OUTSIDE RECORDS SUMMARY | 2024-11-25 11:24 | XMS_ITS | Clinical Summary ---
Author Organization [facility] Address [address] [place] [id number] Care Team Providers Care Health Workers Name Role Phone Felix Waddell MD Primary Care Provider + [phone] Allergies Active Allergy Reactions Criticality Noted Date Comments Penicillins Medications calcium carbonate-vitam in D3 (CALCIUM 600 + D,3,) 600 mg calcium- 200 unit capsule take one tablet by oral route daily 0 0 6 Active vitamin E 400 unit capsule take 1 by oral route once 0 0 6 Active carvedilol (COREG) 25 mg tablet take 1 Tablet by oral route in the morning and half a tablet at night 0 0 6 Active potassium chloride ER (KLOR-CON 10) 10 mEq CR tablet take 1 Tablet by oral route once with food 0 0 6 Active ascorbic acid (vitamin C) 250 mg tablet take one tablet by oral route daily 0 0 6 Active ibuprofen (ADVIL,MOTRIN) 200 mg tablet take 1 tablet by oral route at bedtime 0 0 6 Active ALPRAZolam (XANAX) 0.5 mg tablet take 0.5 tablet by oral route every day at bedtime 0 0 6 Active garlic (GARLIQUE) 5,000 mcg tablet take one tablet by oral route daily 0 0 6 Active Bacillus coagulans (DIGESTIVE ADVANTAGE) 250 million cell tablet,chewable 1 daily 0 0 6 Active levothyroxine (SYNTHROID) 88 mcg tablet take 1 tablet by oral route every day 0 0 6 Active aspirin 81 mg tablet take 1 tablet by oral route every day 0 0 6 Active glucosamine-met hylsulfonylmeth (GLUCOSAMINE MSM) 1,500-500 mg/30 mL liquid take one tablet by oral route daily 0 0 6 Active albuterol HFA (PROAIR HFA) 90 mcg/actuation inhaler inhale 2 puff by inhalation route as needed 0 Inhaler 0 6 Active budesonide-form oterol (SYMBICORT) 80-4.5 mcg/actuation inhaler inhale 2 puff by inhalation route 2 times every day in the morning and evening 0 Inhaler 0 6 Active b complex vitamins tablet take 1 Tablet by Oral route every day 0 0 6 Active hydroCHLOROthia zide (HYDRODIURIL) 25 mg tablet take 0.5 Tablet by oral route every day 0 0 6 Active rosuvastatin (CRESTOR) 20 mg tablet Take 0.5 tablets (10 mg total) by mouth daily. 15 tablet 3 8 Active Active Problems Problem Noted Date Diagnosed Date Aortic calcification 08/22/2017 Assessment & Plan (08/22/2017 7:51 AM CRACKLING PRESS OPERATOR): The presence of aortic calcification is not unexpected given her prior smoking history, her hypertension, and her untreated dyslipidemia, as well as her family history for vascular disease. I suspect that she likely has coronary calcification as well, but in the absence of symptoms, it is discovery would not chemical cell changer except for being yet another reason to can reconsider her decision about lipid management. We talked extensively about this, and she is now willing to begin statin therapy. Essential hypertension 08/22/2017 Assessment & Plan (08/22/2017 7:51 AM CRACKLING PRESS OPERATOR): Blood pressure is adequately controlled on current regimen. No change was made. Hyperlipidemia 08/22/2017 Assessment & Plan (08/22/2017 7:52 AM CRACKLING PRESS OPERATOR): She is now willing to begin statin therapy. She has already spoken with her insurance company, and brings with her a list of the covered statins. Rosuvastatin is covered at the 20 milligram dosage, so will start her at 10 milligrams (1/2 of a 20 milligram pill), and she can follow up with her PCP for monitoring and dose adjustment as necessary. She understands that there is a small chance of myalgias, and to report this should it occur. Surgical History Surgery Date Site/Laterality Comments CHOLECYSTECTOMY Cholecystectomy VAGINAL HYSTERECTOMY Hysterectomy, vaginal TUBAL LIGATION Bilateral tubal ligation Medical History Medical History Date Comments Hypertension Hypertension Disorder of thyroid Thyroid dise ase Asthma Asthma Family History Medical History Relation Name Comments Coronary artery disease Brother Miranda pierrey artery disease; Coronary artery disease Mother Miranda nary artery disease; Skin cancer Mother Cancer, skin; Hypertension Other Family history of Hypertension; Relation Name Status Comments Brother Mother Other Social History Tobacco Use Types Packs/Day Years Used Date Smoking Tobacco: Former Smokeless Tobacco: Never Alcohol Use Standard Drinks/Week Comments Yes 0 (1 standard drink = 0.6 oz pur e alcohol) Personal Safety Answer Date Recorded Getting School Help Needed Not on file 10/07 Comments Unknown Sex and Gender Information Value Date Recorded Sex Assigned at Not on file Legal Sex Female 4:05 AM CRACKLING PRESS OPERATOR Gender Identity Not on file Sexual Orientation Not on file Obstetrics History Last Filed Vital Signs Vital Sign Reading Time Taken Comments Blood Pressure 132/84 08/21/2017 2:51 PM CRACKLING PRESS OPERATOR Pulse 88 08/21/2017 2:51 PM CRACKLING PRESS OPERATOR Temperature - - Respiratory Rate - - Oxygen Saturation - - Inhaled Oxygen Concentration - - Weight 87.8 kg (193 lb 9.6 oz) 08/21/2017 2:51 P M CRACKLING PRESS OPERATOR Height 160 cm (5' 3 ) 08/21/2017 2:51 PM CRACKLING PRESS OPERATOR Body Mass Index 34.29 08/21/2017 2:51 PM CRACKLING PRESS OPERATOR Plan of Treatment Health Maintenance Due Date Last Done Comments Depression Screening 1945 Fall Risk Assessment 1945 Hepatitis C Screening 1945 Osteoporosis Screening-Bone Density Scan 1945 DTaP/Tdap/Td Vaccine (1 - Tdap) 1957 Hepatitis B Screening 1964 Zoster Vaccine (1 of 2) 1996 Well Visit 65+ 2011 Covid-19 Vaccine (2023-2 5 season) 2024 05/25/2022, 10/30/2021, 04/22/2021, Additional history exists Influenza Vaccine (Season Ended) 2025 05/07/2022, 05/31/2021, 04/15/2020, Additional history exists Pneumococcal vaccine 65+ Completed 04/12/2017, 0802/2016 Insurance [facility] MEDICARE ADVANTAGE Care Teams Health Workers Relationship Specialty Start Date End Date Felix Waddell MD PCP - General 01/11/16
--- OUTSIDE RECORDS SUMMARY | 2024-11-25 11:24 | XMS_ITS | CONTINUITY OF CARE DOCUMENT ---
Author Name nasima sujatapilar Address Unknown Organization [facility] Address [address] [place] [address] [address] [place] [address] Phone [phone] Care Team Providers Care Door To Door Lead Generation Name Role Phone Daniel ZULETA, Bonnie Unavailable [phone] Sharda Robles Unavailable [phone] CASSIDY ZULETA, JAZMYN Porras Unavailable [phone] PROBLEMS Condition Status Date Provider Notes DYSPNEA ON EXERTION active Rosamaria Cape HISTORY OF MEDICATION USE Medication Status Instructions Dates Provider Indications Com ments FISH OIL 1000 MG ORAL CAPSULE active TAKE THREE CAPSULES DAILY Rosamaria Cape ASPIRIN 81 MG ORAL TABLET active ONE TABLET DAILY Rosamaria Cape XANAX 0.5 MG ORAL TABLET active ONE TABLET THREE TIMES DAILY Rosamaria Cape OMEPRAZOLE 20 MG ORAL CAPSULE DELAYED RELEASE active ONE TABLET DAILY Rosamaria Cape COREG 25 MG ORAL TABLET active ONE TABL ET TWICE DAILY Rosamaria Cape SYNTHROID 88 MCG ORAL TABLET active ONE TABLET DAILY Rosamaria Cape HYDROCHLOROTHIAZIDE 25 MG ORAL TABLET active ONE TABLET DAILY Rosamaria Cape KLOR-CON 10 10 MEQ ORAL TABLET EXTENDED RELEASE active ONE TABLET DAILY Rosamaria Cape INSURANCE PROVIDERS Payer name Policy type / Coverage type [place] red constitution party ID [employer] MEDICARE Medicare [id number] [facility] Other [id number]
--- OUTSIDE RECORDS SUMMARY | 2024-11-25 11:24 | XMS_ITS | Continuity of Care Document ---
Author Organization [facility] Address [address] [place] [address] Phone Care Team Providers Care Body Design Checker Name Role Phone Camille Ellison Unavailable Unavailable Advance Directives Directive Yes / No Effective Date File Name No Information Encounters Encounter Description Practice Location Reason(s) For Visit Diagnoses Date Provider Providers Copied on Encounter [facility], [id number] [place] [address] [address], [place], [place], [id number], [place] tel:[phone] [facility] No Information [address] [facility] , [address], [place], [address], [place]. tel:[phone] Family History Family Member Type Diagnosis Age At Onset No Information Payers Payer name Insurance type Covered constitution party ID Authoriza tion(s) No Information Social [...]
--- OUTSIDE RECORDS SUMMARY | 2024-11-25 11:24 | XMS_ITS | Referral Summary ---
Author Organization [facility] Address [address] [place] [id number] Care Team Providers Care Pantograph Operator Name Role Phone Felix Waddell MD Primary Care Provider + [phone] Allergies Active Allergy Reactions Criticality Noted Date [...] 08/22/2017 Assessment & Plan (08/22/2017 7:51 AM SUPERVISOR ELECTRONICS PROCESSING): The presence of aortic calcification is not unexpected given her prior smoking history, her hypertension, and her untreated dyslipidemia, as well as her family history for vascular disease. I suspect that she likely has coronary calcification as well, but in the absence of symptoms, it is discovery would not change analyst except for being yet another reason to can reconsider her decision about lipid management. We talked extensively about this, and she is now willing to begin statin therapy. Essential hypertension 08/22/2017 Assessment & Plan (08/22/2017 7:51 AM SUPERVISOR ELECTRONICS PROCESSING): Blood pressure is adequately controlled on current regimen. No change was made. Hyperlipidemia 08/22/2017 Assessment & Plan (08/22/2017 7:52 AM SUPERVISOR ELECTRONICS PROCESSING): She is now willing to begin statin [...] and to report this should it occur. Social History Tobacco Use Types Packs/Day Years [...] on file Legal Sex Female 4:05 AM SUPERVISOR ELECTRONICS PROCESSING Gender Identity Not on file Sexual Orientation Not on file Last Filed Vital Signs Vital Sign Reading Time Taken Comments Blood Pressure 132/84 08/21/2017 2:51 PM SUPERVISOR ELECTRONICS PROCESSING Pulse 88 08/21/2017 2:51 PM SUPERVISOR ELECTRONICS PROCESSING Temperature - - Respiratory Rate - - Oxygen Saturation - - Inhaled Oxygen Concentration - - Weight 87.8 kg (193 lb 9.6 oz) 08/21/2017 2:51 P M SUPERVISOR ELECTRONICS PROCESSING Height 160 cm (5' 3 ) 08/21/2017 2:51 PM SUPERVISOR ELECTRONICS PROCESSING Body Mass Index 34.29 08/21/2017 2:51 PM SUPERVISOR ELECTRONICS PROCESSING Plan of Treatment Not on file Insurance [address] [place], [place] [address] MEDICARE ADVANTAGE Care Teams Pantograph Operator Relationship Specialty Start Date End Date Felix Waddell MD PCP - General 01/11/16
--- NOTE | 2024-12-04 16:07 | P.PCNHOL_ITS ---
Holter/Event Monitor Holter/Event Monitor Date of procedure: 11/25/24 Holter/Event Procedure: 3-7 Day Holter Monitor Indications: PVC Conclusion: 1. 3 days holter monitor on 11/25/24. 2. Predominant rhythm is sinus rhythm. HR range 50-162 bpm; average 68 bpm. 3. There are rare premature supraventricular complexes, rare supraventricular couplets, and rare supraventricular triplets. There are 2 episodes of supraventr icular tachycardia, fastest at 162 bpm and longest lasting 14 beats. 4. There are rare premature ventricular complexes. No ventricular tachycardia. 5. No significant pauses greater than 3 seconds. Underlying bundle branch block. 6. Patient reports 2 episodes of symptoms of funny feeling in chest, and restlessness which demonstrate sinus rhythm at 62-71 bpm.
== END 2024-11-25 10:31 | disposition home or self-care (01) ==
PROVIDERS: PCP Family Medicine; Visit Provider Physician Assistant Medical
DX: I49.1 Atrial premature depolarization (principal); I47.10 Supraventricular tachycardia, unspecified; I49.3 Ventricular premature depolarization; R06.02 Shortness of breath
CPT/HCPCS: 93242

== ENCOUNTER 2025-05-20 07:46 | Emergency (ER) | payer MEDICARE, SELFPAY ==
--- OUTSIDE RECORDS SUMMARY | 2000-08-15 11:30 | XMS_ITS | Continuity of Care Document ---
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 , [address], [place], [address], [place]. tel:[phone] Family History Family Member Type Diagnosis Age At Onset No Information Payers Payer name Insurance type Covered republican ID Authoriza tion(s) No Information Social History Type Description Quantity Date Captured Comments Sex Female Smoking Status No Information Chief Complaint And Reason For Visit No Information Reason For Referral Reason For Referral No Information History Of Present Illness Encounter Date Complaint History Of Prese nt Illness No Information Functional Status Date Functional Assessmen t No Information Instructions Date Instruction Additional Infor mation No Information Assessments Type Assessment Date No Information Patient Care Teams Name Effective Dates (start - stop) Status Members No Information
--- OUTSIDE RECORDS SUMMARY | 2000-08-15 11:30 | XMS_ITS | Continuity of Care Document ---
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 , [address], [place], [address], [place]. tel:[phone] Family History Family Member Type Diagnosis Age At Onset No Information Payers Payer name Insurance type Covered green party ID Authoriza tion(s) No Information Social History [...]
[2025-05-20] VITALS (11 sets, daily range): BP systolic 120–196; BP diastolic 51–100; PULSE 72–90; RESP 15–28; TEMP 36.5; O2SAT 96–99
--- NOTE | ~2025-05-20 | CT_ITS ---
EXAMINATION: CTA BRAIN/CAROTID DATE: 05/20/2025 09:00 INDICATION: Dizziness. Lightheadedness. TECHNIQUE: Computed tomographic angiography (CTA) of the head and neck was performed with 100 mL Omnipaque-350 intravenous contrast. Multiplanar reconstructions and maximum intensity projection 3D-reconstructions of the carotid arteries and of the intracranial arteries were created by the technologist on a separate workstation. Precontrast CT of the head was also obtained. Automated exposure control and iterative reconstruction technique were employed.The dose-length product was 1651.63 mGy-cm. COMPARISON: None. FINDINGS: Head: No acute intracranial hemorrhage, acute infarction or abnormal extra axial fluid collection. There is mild scattered white matter hypoattenuation consistent with chronic small vessel ischemic disease. Symmetric prominence of the sulci consistent with mild age-appropriate diffuse cerebral volume loss. Ventricles are normal and symmetric. No mass/mass effect. No abnormally enhancing lesions on the post contrast imaging. Complete opacification of the bilateral sphenoid sinuses. There are focal regions of focal thinning of the de jesus of the sinuses with possible dehiscence or near dehiscence along the lateral wall of the left sphenoid sinus located along side the margins of the anterior and posterior left carotid siphon. The orbits and mastoid air cells are normal. Intracranial arteries Vertebral arteries are codominant. Small amount nonhemodynamically significant atherosclerotic plaque at the bilateral carotid siphons. There is no hemodynamically significant stenosis in the vertebral, basilar and internal carotid arteries. Both A1 and P1 segments are patent. There is a tiny patent an terior communicating artery. There are no aneurysms identified. Cerebral arterial arborization appears symmetric. Carotid arteries: The aortic arch and the great vessels arising from the arch are normal in caliber with no dissection or hemodynamically significant stenosis. There is 55% stenosis of the right carotid bulb relative to normal distal artery lumen diameter (NASCET criteria). There is 40% stenosis of the left carotid bulb relative to normal distal artery lumen diameter. Cervical soft tissues are unremarkable. Mild emphysema with biapical pleural-parenchymal scarring with small amount of callus location on the right. Moderate cervical spondylosis. IMPRESSION: 1. 55% stenosis of the right carotid bulb relative to normal distal artery lumen diameter (NASCET criteria). 2. 40% stenosis of the left carotid bulb relative to normal distal artery lumen diameter. 3. Unremarkable cerebral CT angiogram with no hematoma significant stenosis, aneurysm or thrombosis. 4. Normal aging brain with mild diffuse volume loss and mild scattered periventricular predominant white matter hypoattenuation consistent with chronic small vessel ischemic disease. 5. Complete opacification of the bilateral sphenoid sinuses with scalloping of the de jesus of the sinuses including coronal regions of dehiscence or near dehiscence along the lateral wall of the right sphenoid sinus where it abuts the carotid siphon. Reviewed, dictated and finalized at location A. IMPRESSION: 1. 55% stenosis of the right carotid bulb relative to normal distal artery lume n diameter (NASCET criteria). 2. 40% stenosis of the left carotid bulb relative to normal distal artery lumen diameter. 3. Unremarkable cerebral CT angiogram with no hematoma significant stenosis, an eurysm or thrombosis. 4. Normal aging brain with mild diffuse volume loss and mild scattered perivent ricular predominant white matter hypoattenuation consistent with chronic small vessel ischemic disease. 5. Complete opacification of the bilateral sphenoid sinuses with scalloping of the de jesus of the sinuses including coronal regions of dehiscence or near dehisc ence along the lateral wall of the right sphenoid sinus where it abuts the mosquera tid siphon.
--- NOTE | ~2025-05-20 | XR_ITS ---
EXAMINATION: XR chest 1V, 05/20/2025 9:00 CDT HISTORY: dizziness, weakness COMPARISON: No comparisons available. Technique: Single view. Findings: The lungs are clear, no effusion. No pneumothorax. Heart is normal size. Mediastinal and hilar contours are within normal limits. Bony thorax no acute abnormality. Impression: No acute cardiopulmonary abnormality. Reviewed, dictated and finalized at location P. Impression: No acute cardiopulmonary abnormality.
--- OUTSIDE RECORDS SUMMARY | 2025-05-20 07:50 | XMS_ITS | Clinical Summary ---
Author Organization [facility] D Address [address] [place] [id number] Care Team Providers Care Police Detective Name Role Phone Felix Waddell MD Primary Care Provider + [phone] Allergies Active Allergy Reactions Criticality Noted Date [...] 08/22/2017 Assessment & Plan (08/22/2017 7:51 AM HOME INSPECTOR): The presence of aortic calcification is not unexpected given her prior smoking history, her hypertension, and her untreated dyslipidemia, as well as her family history for vascular disease. I suspect that she likely has coronary calcification as well, but in the absence of symptoms, it is discovery would not exchange specialist except for being yet another reason to can reconsider her decision about lipid management. We talked extensively about this, and she is now willing to begin statin therapy. Essential hypertension 08/22/2017 Assessment & Plan (08/22/2017 7:51 AM HOME INSPECTOR): Blood pressure is adequately controlled on current regimen. No change was made. Hyperlipidemia 08/22/2017 Assessment & Plan (08/22/2017 7:52 AM HOME INSPECTOR): She is now willing to begin statin [...] on file Legal Sex Female 4:05 AM HOME INSPECTOR Gender Identity Not on file Sexual Orientation Not on file Obstetrics History Last Filed Vital Signs Vital Sign Reading Time Taken Comments Blood Pressure 132/84 08/21/2017 2:51 PM HOME INSPECTOR Pulse 88 08/21/2017 2:51 PM HOME INSPECTOR Temperature - - Respiratory Rate - - Oxygen Saturation - - Inhaled Oxygen Concentration - - Weight 87.8 kg (193 lb 9.6 oz) 08/21/2017 2:51 P M HOME INSPECTOR Height 160 cm (5' 3) 08/21/2017 2:51 PM HOME INSPECTOR Body Mass Index 34.29 08/21/2017 2:51 PM HOME INSPECTOR Plan of Treatment Health Maintenance Due Date Last Done Comments Depression Screening 1945 Fall Risk Assessment 1945 Hepatitis C Screening 1945 Osteoporosis Screening-Bone Density Scan 1945 DTaP/Tdap/Td Vaccine (1 - Tdap) 1957 Hepatitis B Screening 1964 Zoster Vaccine (1 of 2) 1996 Well Visit 65+ 2011 Covid-19 Vaccine (2024-2 6 season) 2025 05/25/2022, 10/30/2021, 04/22/2021, Additional history exists Influenza Vaccine (#1) 2025 , 05/31/2021, 04/15/2020, Additional history exists Pneumococcal vaccine 65+ Completed 04/12/2017, 0802/2016 Insurance [facility] MEDICARE ADVANTAGE Care Teams Police Detective Relationship Specialty Start Date End Date Felix Waddell MD PCP - General 01/11/16
--- NOTE | 2025-05-20 07:51 | ECG_ITS ---
Test Date: 2025-05-20 07:57:14 Measurements Intervals [place] Rate: 78 P: 79 MT: 189 QRS: -52 QRSD: 158 T: 92 QT: 411 QTc: 471 Interpretive Statements SINUS RHYTHM LEFT AXIS DEVIATION LEFT BUNDLE BRANCH BLOCK BASELINE ARTIFACT- I, II, III, AVR, AVL, AVF, V3-V5 ABNORMAL ECG No previous ECG available for comparison Electronically Signed On 05-20-2025 08:08:12 CDT by Celso Benito D.O.
--- NOTE | 2025-05-20 08:07 | ED_ITS ---
HPI - General Adult General Chief complaint: Dizziness Stated complaint: light headed/dizzy nauseated Time Seen by Provider: 05/20/25 07:48 History of Present Illness HPI narrative: 79-year-old female present to the emergency department for evaluation for onset of dizziness and ?cloudy headedness ?. Patient reports that she was fine when she went to bed at midnight but when she woke up at 4:30 a.m. she was having onset of dizziness that was worse with movement. Patient felt like her head was foggy and she was having a movement sensation. Patient denies any associated chest pain. Patient denies feeling like she is going to pass out. Related Data Home Medications ?Medication ?Instructions ?Recorded ?Confirmed ?Last Taken ?Type L.acidoph,paracasei,B.animalis 10 1 cell PO DAILY 02/2205/20/25 05/19/25 History billion cell capsule (Digestive Advantage Advanced Probiotic) calcium 2 tablet PO DAILY 03/17/20 1 05/19/25 History ttet-F9-ssqqszgl-inosit-silicon 300 mg-200 unit-37.5 mg tablet (Bone Density Calcium Plus D) cetirizine 10 mg capsule (Zyrtec) 10 mg PO DAILY PRN a llergy symptoms 01/03/24 05/20/25 05/19/25 History aspirin 81 mg capsule 81 mg PO DAILY 03/07/2404/2405/19/25 History acetaminophen 650 mg 650 mg PO Q12H 10/02/2404/2405/19/25 History tablet,extended release (Tylenol Arthritis Pain) Digestive Advantage See Rx Instructions PO .COMP MARIA DEL CARMEN 04/02/25 05/20/25 05/19/25 History magnesium See Rx Instructions PO .COMP MARIA DEL CARMEN 04/02/25 05/20/25 05/19/25 History vitamin A-vit C-vit E-zinc-Cu See Rx Instructions PO . COMPLEX 04/02/25 05/20/25 05/19/25 History tablet Allergies Allergy/AdvReac Type Severity Reaction Status Date / Time Penicillins Allergy Unknown Rash Verified 05/20/25 08:18 methylprednisolone AdvReac Severe Hypertensio Verified 05/20/25 08:18 n Review of Systems 2 Review of Systems: All systems reviewed & are unremarkable except as noted in HPI and below PMFSH Past Medical History Medical History Tendinopathy of right shoulder Diabetes mellitus screening Nail abnormalities Bloody vaginal discharge Pancreas divisum On CT of the abdomen/pelvis in February 2020. Small bowel obstruction Macular degeneration Congestive heart failure Poorly documented, with no echocardiogram noted in our system. Hyperlipidemia Anxiety (Unknown) Essential hypertension (Unknown) COPD with emphysema Osteoarthritis Left bundle branch block Partial small bowel obstruction (03/16/20) Hypothyroidism (Unknown) Pulmonary emphysema (Unknown) Surgical History Surgical History History of tubal ligation History of hysterectomy History of colonoscopy Colonoscopy in June [address] Mejía for positive Cologuard showed internal hemorrhoids. History of cholecystectomy History of appendectomy Family History Family History Mother Family history of coronary artery disease Hypertension Heart disease Sibling Family history of coronary artery disease COPD (chronic obstructive pulmonary disease) Heart disease Emphysema lung Breast cancer Father , MVC No problems noted. Other Diabetes mellitus Social History Social History (Updated 04/02/25 @ 13:18 by Homa Griffin [facility]) Social History: Surrogate decision maker: Bonnie Bean, daughter. Code status: Full code. Years smoked: 22 Smoking status: Former smoker Tobacco type: cigarettes Second hand tobacco smoke exposure: Yes Smoking end date: 07/24/97 Alcohol intake: never Substance use: never Substance use type: does not use Do You Feel Safe in your Home?: Yes Lack of Transportation: No Lack of Food: Never True Current Housing: I Have Housing Concerned About Future Housing: No Difficulty Paying Gas/Electric Bills: No Difficulty Paying for Meds: No Currently Unemployed: No Education: High School Diploma/GED Difficulty w/ Childcare or Family Care: No Living arrangements: alone Additional living arrangements comments: Resides in [place] with her cat, Max. 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 Gender identity (if verbalized by the patient): Female Sexual Orientation (if Verbalized by the Patient): Straight or Heterosexual Spiritual care concerns: No Exam 2 Narrative: APPEARANCE: Well appearing, no pain, no distress, well-nourished. HEAD: normocephalic, atraumatic. EYES: PERRLA/EOMI, conjunctivae clear. NOSE: Normal no drainage EARS:TMS clear with good light reflex. THROAT: Pharynx clear, no exudate. NECK: Supple. No adenopathy, no masses. RESPIRATORY: Airway patent, respirations nonlabored. Clear to auscultation bilaterally, no rales, rhonchi, wheezing. CARDIOVASCULAR: Regular rate and rhythm without murmurs rubs or gallops. ABDOMINAL: Soft, nontender, nondistended, normal bowel sounds MUSCULOSKELETAL: Moves all extremities. Strength/ROM intact, No edema, No calf tenderness. NEURO: Alert. Cranial nerves II through XII intact. Good gait. Good coordination. NIH score is 0 SKIN: Warm, dry. Normal Color Course Vital Signs Vital signs: Vital Signs Temperature 97.7 F 05/20/25 07:51 Pulse Rate 80 05/20/25 07:51 Respiratory Rate 15 05/20/25 07:51 Blood Pressure 193/84 H 05/20/25 07:51 Pulse Oximetry 97 05/20/25 07:51 Oxygen Delivery Room Air 05/20/25 07:51 Temperature 97.7 F 05/20/25 07:51 Pulse Rate 72 05/20/25 11:43 Respiratory Rate 20 05/20/25 11:43 Blood Pressure 133/66 05/20/25 11:43 Pulse Oximetry 97 05/20/25 11:43 Oxygen Delivery Room Air 05/20/25 07:51 Medical Decision Making MDM Narrative Medical decision making narrative: 71-year-old female presenting to the emergency department for evaluation for onset of vertigo this morning. Patient reports she was having some dizziness and had unstable gait due to a movement sensation. Patient was treated with meclizine and does feel improved. Patient did have some elevated blood pressures upon arrival to the emergency department but these did improve with her carvedilol, meclizine and furosemide. Head CT was negative for any acute intracranial abnormality. On re-evaluation patient states she does feel improved. Patient was able to ambulate at her baseline. I do suspect benign positional vertigo over CVA due to the symptoms worsening with movement, negative head CT and symptoms did improve with treatment. Patient and family were updated the results of the workup. All questions concerns were addressed. Differential Diagnosis Differential Diagnosis: CVA, TIA, benign positional vertigo, vertigo, orthostatic hypotension, dehydration Vital Signs Vital Signs: Vital Signs Temperature 97.7 F 05/20/25 07:51 Pulse Rate 80 05/20/25 07:51 Respiratory Rate 15 05/20/25 07:51 Blood Pressure 193/84 H 05/20/25 07:51 Pulse Oximetry 97 05/20/25 07:51 Oxygen Delivery Room Air 05/20/25 07:51 Temperature 97.7 F 05/20/25 07:51 Pulse Rate 72 05/20/25 11:43 Respiratory Rate 20 05/20/25 11:43 Blood Pressure 133/66 05/20/25 11:43 Pulse Oximetry 97 05/20/25 11:43 Oxygen Delivery Room Air 05/20/25 07:51 Lab Data Lab results reviewed: Yes I reviewed the patient's lab results. 05/20/25 08:35 05/20/25 08:11 Labs: Lab Results 05/20/25 05/20/25 05/20/25 Range/Units 08:11 08:29 08:35 WBC 12.8 H (4.5-10.0) K/mm3 RBC 4.46 (4.2-5.4) M/mm3 Hgb 13.9 (12.0-15.0) g/dL Hct 41.6 (37.0-47.0) % MCV 93.3 (80-100) fl MCH 31.2 (26-34) pg MCHC 33.4 (32-36) g/dl RDW 13.2 (11.5-14.5) % Plt Count 302 (150-375) k/mm3 MPV 9.5 (7.4-10.4) fl Immature Gran % (Auto) 0.3 (0-0.5) % Neut % (Auto) 67.7 (45.5-73.1) % Lymph % (Auto) 22.8 (18.3-44.2) % Tompkins % (Auto) 6.8 (2.6-8.5) % Eos % (Auto) 1.9 (0-4.4) % Baso % (Auto) 0.5 (0.2-1.2) % Lymph # (Auto) 2.93 (0.9-3.2) K/mm3 Tompkins # (Auto) 0.9 H (0.1-0.6) K/mm3 Eos # (Auto) 0.2 (0-0.3) K/mm3 Baso # (Auto) 0.1 (0.0-0.1) K/mm3 Abs Immat Gran (auto) 0.04 H (0.00-0.031) K/mm3 Absolute Neuts (auto) 8.7 H (1.3-6.7) K/mm3 Absolute Nucleated RBC 0.000 (0.0-0.012) K/mm3 Nucleated RBC % 0.0 (0.0-0.2) % PT 13.5 (11.1-14.7) Seconds INR 1.0 APTT 30.4 (22.3-36.8) Seconds Sodium 135 L (137-145) mmol/L Potassium 4.4 (3.4-5.0) mmol/L Chloride 99 (98-107) mmol/L Carbon Dioxide 27 (22-30) mmol/L Anion Gap 9 (4-12) mmol/L BUN 23 H D (7-17) mg/dL Creatinine 0.75 (0.7-1.0) mg/dL Estim Creat Clear Calc 54 ml/min Estimated GFR > 60 (59 - ) Glucose 114 H (65-110) mg/dL POC Capillary Glucose 102 (65-105) mg/dl Calcium 9.3 (8.4-10.2) mg/dL Total Bilirubin 0.7 (0.2-1.3) mg/dL AST 33 (14-36) U/L ALT 17 (6-35) U/L Alkaline Phosphatase 71 (38-126) U/L Total Protein 7.4 (6.3-8.2) g/dL Albumin 4.2 (3.5-5.1) g/dL Urine Color (Yellow) Urine Appearance (Clear) Urine pH (5.0-9.0) Ur Specific Jewett (1.001-1.035) Urine Protein (Negative) mg/dL Urine Glucose (UA) (Negative) mg/dL Urine Ketones (Negative) mg/dL Ur Blood (Man) (Negative) Urine Nitrate (Negative) Urine Bilirubin (Negative) Urine Urobilinogen (<2.0) mg/dL Add Ur Microanalysis Leukocyte Esterase Rfl (Negative) JULIO/UL Urine RBC (0-2) /hpf Urine WBC (0-3) /hpf Ur Squamous Epith Cells (Few) /hpf Urine Bacteria /hpf Urine Casts Influenza A (RT-PCR) Negative (Negative) Influenza B (RT-PCR) Negative (Negative) RSV (RT-PCR) Negative (Negative) SARS-CoV-2 RNA (RT-PCR) Negative (Negative) 05/20/25 Range/Units 09:37 WBC (4.5-10.0) K/mm3 RBC (4.2-5.4) M/mm3 Hgb (12.0-15.0) g/dL Hct (37.0-47.0) % MCV (80-100) fl MCH (26-34) pg MCHC (32-36) g/dl RDW (11.5-14.5) % Plt Count (150-375) k/mm3 MPV (7.4-10.4) fl Immature Gran % (Auto) (0-0.5) % Neut % (Auto) (45.5-73.1) % Lymph % (Auto) (18.3-44.2) % Tompkins % (Auto) (2.6-8.5) % Eos % (Auto) (0-4.4) % Baso % (Auto) (0.2-1.2) % Lymph # (Auto) (0.9-3.2) K/mm3 Tompkins # (Auto) (0.1-0.6) K/mm3 Eos # (Auto) (0-0.3) K/mm3 Baso # (Auto) (0.0-0.1) K/mm3 Abs Immat Gran (auto) (0.00-0.031) K/mm3 Absolute Neuts (auto) (1.3-6.7) K/mm3 Absolute Nucleated RBC (0.0-0.012) K/mm3 Nucleated RBC % (0.0-0.2) % PT (11.1-14.7) Seconds INR APTT (22.3-36.8) Seconds Sodium (137-145) mmol/L Potassium (3.4-5.0) mmol/L Chloride (98-107) mmol/L Carbon Dioxide (22-30) mmol/L Anion Gap (4-12) mmol/L BUN (7-17) mg/dL Creatinine (0.7-1.0) mg/dL Estim Creat Clear Calc ml/min Estimated GFR (59 - ) Glucose (65-110) mg/dL POC Capillary Glucose (65-105) mg/dl Calcium (8.4-10.2) mg/dL Total Bilirubin (0.2-1.3) mg/dL AST (14-36) U/L ALT (6-35) U/L Alkaline Phosphatase (38-126) U/L Total Protein (6.3-8.2) g/dL Albumin (3.5-5.1) g/dL Urine Color Yellow (Yellow) Urine Appearance Clear (Clear) Urine pH 7.5 (5.0-9.0) Ur Specific Jewett 1.035 (1.001-1.035) Urine Protein Negative (Negative) mg/dL Urine Glucose (UA) Negative (Negative) mg/dL Urine Ketones Trace H (Negative) mg/dL Ur Blood (Man) Negative (Negative) Urine Nitrate Negative (Negative) Urine Bilirubin Negative (Negative) Urine Urobilinogen 0.2 (<2.0) mg/dL Add Ur Microanalysis Reviewed Leukocyte Esterase Rfl 1+ H (Negative) JULIO/UL Urine RBC 0-2 (0-2) /hpf Urine WBC 0-5 (0-3) /hpf Ur Squamous Epith Cells None seen (Few) /hpf Urine Bacteria None seen /hpf Urine Casts 0-2 Influenza A (RT-PCR) (Negative) Influenza B (RT-PCR) (Negative) RSV (RT-PCR) (Negative) SARS-CoV-2 RNA (RT-PCR) (Negative) Imaging Data Radiologist's impression: Impressions Chest X-Ray 05/20/25 09:12 Impression: No acute cardiopulmonary abnormality. Head/Neck CTA 05/20/25 09:14 IMPRESSION: 1. 55% stenosis of the right carotid bulb relative to normal distal artery lumen diameter (NASCET criteria). 2. 40% stenosis of the left carotid bulb relative to normal distal artery lumen diameter. 3. Unremarkable cerebral CT angiogram with no hematoma significant stenosis, aneurysm or thrombosis. 4. Normal aging brain with mild diffuse volume loss and mild scattered periventricular predominant white matter hypoattenuation consistent with chronic small vessel ischemic disease. 5. Complete opacification of the bilateral sphenoid sinuses with scalloping of the de jesus of the sinuses including coronal regions of dehiscence or near dehiscence along the lateral wall of the right sphenoid sinus where it abuts the carotid siphon. Discharge Plan Discharge Clinical Impression: Vertigo Patient Disposition: Home Condition: Stable Instructions: Antibiotic Form, Benign Paroxysmal Positional Vertigo (ED) Additional Instructions: Meclizine as needed for vertigo control. Have close follow-up with your primary care physician for additional outpatient testing. If you have any worsening symptoms then please call or return to the emergency department. Patient Language: Sinhala Prescriptions: New meclizine 25 mg tablet 25 mg PO BID PRN (Reason: dizziness) 7 Days Qty: 14 0RF No Action Zyrtec 10 mg capsule 10 mg PO DAILY PRN (Reason: allergy symptoms) aspirin 81 mg capsule 81 mg PO DAILY acetaminophen [Tylenol Arthritis Pain] 650 mg tablet extended release 650 mg PO Q12H vitamin A-vit C-vit E-zinc-Cu Tablet See Rx Instructions PO .COMPLEX Rx Instructions: orally; Digestive Advantage See Rx Instructions PO .COMPLEX Rx Instructions: orally; magnesium See Rx Instructions PO .COMPLEX Rx Instructions: orally; Digestive Advantage Advanced 10 billion cell Capsule 1 cell PO DAILY Bone Density Calcium Plus D 300-200-37.5 mg-unit-mg Tablet 2 tablet PO DAILY pravastatin 20 mg tablet See Rx Instructions .ROUTE .COMPLEX Qty: 100 2RF Dose Instruction: TAKE 1 TABLET BY MOUTH DAILY Rx Instructions: TAKE 1 TABLET BY MOUTH DAILY omeprazole 20 mg capsule,delayed release(DR/EC) See Rx Instructions .ROUTE .COMPLEX Qty: 100 2RF Dose Instruction: TAKE 1 CAPSULE BY MOUTH DAILY Rx Instructions: TAKE 1 CAPSULE BY MOUTH DAILY levothyroxine 88 mcg tablet See Rx Instructions .ROUTE .COMPLEX Qty: 90 3RF Dose Instruction: TAKE 1 TABLET BY MOUTH DAILY Rx Instructions: TAKE 1 TABLET BY MOUTH DAILY meloxicam 7.5 mg tablet 7.5 mg PO DAILY Qty: 30 5RF Breztri Aerosphere 160-9-4.8 mcg/actuation HFA aerosol inhaler 2 inh inhalation BID Qty: 3 3RF Rx Instructions: 3 month supply please alprazolam [Xanax] 0.5 mg tablet 0.25 mg PO TID Qty: 30 5RF carvedilol 25 mg tablet See Rx Instructions .ROUTE .COMPLEX Qty: 200 0RF Dose Instruction: TAKE 1 TABLET BY MOUTH TWICE DAILY Rx Instructions: TAKE 1 TABLET BY MOUTH TWICE DAILY furosemide 20 mg tablet See Rx Instructions .ROUTE .COMPLEX Qty: 90 0RF Dose Instruction: TAKE 1 TABLET BY MOUTH EVERY MORNING Rx Instructions: TAKE 1 TABLET BY MOUTH EVERY MORNING Follow-up/Referrals: Felix Waddell MD [Primary Care Provider, Family Practice]
[2025-05-20] MEDS: FUROSEMIDE 20 MG TABLET PO (08:19)
[2025-05-20] MEDS: MECLIZINE HCL 25 MG TABLET PO (08:19)
--- OUTSIDE RECORDS SUMMARY | 2025-05-20 08:20 | XMS_ITS | Clinical Summary ---
Author Organization [facility] D Address [address] [place] [id number] Care Team Providers Care Nursery Hand Name Role Phone Felix Waddell MD Primary Care Provider + [phone] Allergies Active Allergy Reactions Criticality Noted Date [...] 08/22/2017 Assessment & Plan (08/22/2017 7:51 AM SQL DEVELOPER DBA): The presence of aortic calcification is not unexpected given her prior smoking history, her hypertension, and her untreated dyslipidemia, as well as her family history for vascular disease. I suspect that she likely has coronary calcification as well, but in the absence of symptoms, it is discovery would not slubber frame changer except for being yet another reason to can reconsider her decision about lipid management. We talked extensively about this, and she is now willing to begin statin therapy. Essential hypertension 08/22/2017 Assessment & Plan (08/22/2017 7:51 AM SQL DEVELOPER DBA): Blood pressure is adequately controlled on current regimen. No change was made. Hyperlipidemia 08/22/2017 Assessment & Plan (08/22/2017 7:52 AM SQL DEVELOPER DBA): She is now willing to begin statin [...] on file Legal Sex Female 4:05 AM SQL DEVELOPER DBA Gender Identity Not on file Sexual Orientation Not on file Obstetrics History Last Filed Vital Signs Vital Sign Reading Time Taken Comments Blood Pressure 132/84 08/21/2017 2:51 PM SQL DEVELOPER DBA Pulse 88 08/21/2017 2:51 PM SQL DEVELOPER DBA Temperature - - Respiratory Rate - - Oxygen Saturation - - Inhaled Oxygen Concentration - - Weight 87.8 kg (193 lb 9.6 oz) 08/21/2017 2:51 P M SQL DEVELOPER DBA Height 160 cm (5' 3) 08/21/2017 2:51 PM SQL DEVELOPER DBA Body Mass Index 34.29 08/21/2017 2:51 PM SQL DEVELOPER DBA Plan of Treatment Health Maintenance Due Date [...] Pneumococcal vaccine 65+ Completed 04/12/2017, 0802/2016 Insurance [facility] MEDICARE ADVANTAGE Care Teams Nursery Hand Relationship Specialty Start Date End Date Felix Waddell MD PCP - General 01/11/16
[2025-05-20 08:29] LABS: Alanine Aminotransferase 17 U/L (6-35); Albumin Level 4.2 g/dL (3.5-5.1); Alkaline Phosphatase 71 U/L (38-126); Anion Gap 9 mmol/L (4-12); Aspartate Amino Transferase 33 U/L (14-36); Bilirubin,Total 0.7 mg/dL (0.2-1.3); Blood Urea Nitrogen 23 mg/dL (7-17); Calcium 9.3 mg/dL (8.4-10.2); Carbon Dioxide 27 mmol/L (22-30); Chloride 99 mmol/L (98-107); Estimated CRCL calculation 54 ml/min; Estimated Glomerular Filt Rate > 60; Glucose 114 mg/dL (65-110); Potassium 4.4 mmol/L (3.4-5.0); Sodium 135 mmol/L (137-145); Total Protein 7.4 g/dL (6.3-8.2)
[2025-05-20 08:43] LABS: Hematocrit 41.6 % (37.0-47.0); Hemoglobin 13.9 g/dL (12.0-15.0); Immature Granulocyte Percent A 0.3 % (0-0.5); Lymphocytes Absolute Auto 2.93 K/mm3 (0.9-3.2); Mean Corpuscular HGB Conc 33.4 g/dl (32-36); Mean Corpuscular Hemoglobin 31.2 pg (26-34); Mean Corpuscular Volume 93.3 fl (80-100); Nucleated Red Blood Cells Absolute Auto 0.000 K/mm3 (0.0-0.012); Nucleated Red Blood Cells Perc 0.0 % (0.0-0.2); Platelet Count Result 302 k/mm3 (150-375); Red Blood Count 4.46 M/mm3 (4.2-5.4); White Blood Count 12.8 K/mm3 (4.5-10.0)
[2025-05-20 08:52] LABS: Influenza A QL RT-PCR Negative (Negative); Influenza B QL RT-PCR Negative (Negative); RSV RNA, RT-PCR Negative (Negative); SARS-CoV-2 RNA PCR Negative (Negative)
[2025-05-20 08:59] LABS: INR 1.0; Prothrombin Time 13.5 Seconds (11.1-14.7)
[2025-05-20 09:00] LABS: Partial Thromboplastin Time 30.4 Seconds (22.3-36.8)
[2025-05-20 09:56] LABS: Add Urine Microscopic? YES; Appearance Urine Clear (Clear); Glucose Urine UA Negative (Negative); Leukocyte Esterase Ur 1+ LEU/UL (Negative); Need Manual Microscopic Reviewed; Nitrate Urine Negative (Negative); Non Pathogenic Casts 0-2; Specific Grav Ur 1.035 (1.001-1.035)
== END 2025-05-20 11:44 | disposition home or self-care (01) ==
PROVIDERS: Emergency Provider Emergency Medicine; PCP Family Medicine
DX: R42 Dizziness and giddiness (principal); Z20.822 Contact with and (suspected) exposure to COVID-19; I10 Essential (primary) hypertension; I44.7 Left bundle-branch block, unspecified; E78.5 Hyperlipidemia, unspecified; E03.9 Hypothyroidism, unspecified; J43.9 Emphysema, unspecified; H35.30 Unspecified macular degeneration; M19.90 Unspecified osteoarthritis, unspecified site; F41.9 Anxiety disorder, unspecified; Z87.891 Personal history of nicotine dependence; Z90.710 Acquired absence of both cervix and uterus; Z90.49 Acquired absence of other specified parts of digestive tract; I65.23 Occlusion and stenosis of bilateral carotid arteries; Z79.82 Long term (current) use of aspirin; Z79.899 Other long term (current) drug therapy
CPT/HCPCS: 36415; 70496; 70498; 71045; 80053; 81001; 82948; 85025; 85610; 85730; 87086; 87637; 93005; 96374; 99284; A9270; J0360; Q9967